=== PATIENT | female | born 1960 | race African-American/Black ===

== ENCOUNTER 2019-02-03 11:41 | Inpatient (IN) | payer MEDICAID ==
[~2019-02-03] VITALS: Ht 160 cm; Wt 73.5 kg
[2019-02-03] MEDS ORDERED: SODIUM CHLORIDE 0.9% 1,000 ML IV ONE ×2 (13:00→14:15)
[2019-02-03 13:27] LABS: BASOPHILS % 0.5 % (0.0-2.0); EOSINOPHILS % 0.4 % (0.0-5.0); HEMATOCRIT. 41.5 % (36.0-48.0); HEMOGLOBIN. 13.2 g/dL (12.0-16.0); LYMPHOCYTES % 21.6 % (20.0-50.0); MEAN CORPUSCULAR HEMOGLOBIN 29.6 pg (28.0-32.0); MEAN CORPUSCULAR VOLUME 92.8 fL (81.0-99.0); MEAN PLATELET VOLUME 10.5 fl (7.4-10.4); MONOCYTES % 9.1 % (2.0-8.0); NEUTROPHILS % 68.4 % (40.0-76.0); PLATELET 270 x1000/uL (130-400); RED BLOOD CELL COUNT 4.47 mill/uL (4.2-5.4); RED CELL DISTRIBUTION WIDTH 13.8 % (11.6-14.6)
[2019-02-03 13:30] LABS: CHLORIDE 86 mEq/L (98-107); INR 1.1; PROTHROMBIN TIME 10.9 sec (9.6-11.0)
[2019-02-03 13:40] LABS: BETA HYDROXYBUTYRATE 3.6 mMol/L (0.0-0.3)
[2019-02-03 13:42] LABS: ETHANOL BLOOD < 10 mg/dL
[2019-02-03] MEDS ORDERED: MAGNESIUM/ALUMINUM HYDROXIDE/SIMETHICONE 30ML UDC PO ONE (14:15)
[2019-02-03] MEDS ORDERED: INSULIN REGULAR (HUMULIN R) 300UNITS/3ML IV ONE (14:15)
[2019-02-03] MEDS ORDERED: ONDANSETRON HCL 4MG/2ML INJ IV ONE (14:15)
[2019-02-03] MEDS ORDERED: MORPHINE SULFATE 4 MG/ML CPJ (NOT FOR IM USE) IV ONE (14:15)
[2019-02-03] MEDS ORDERED: VISCOUS LIDOCAINE 2% 15 ML UDC MM ONE (14:15)
[2019-02-03] MEDS ORDERED: LABETALOL 5MG/ML SYR 20 MG/4 ML SYRINGE IV ONE (15:15)
[2019-02-03] MEDS ORDERED: LABETALOL HCL 100MG TABLET PO NR (16:00)
[2019-02-03] MEDS: SODIUM CHLORIDE 0.9% 1,000 ML IV SCH (18:02)
[2019-02-03] MEDS ORDERED: DOCUSATE SODIUM 100MG CAPSULE PO PRN (18:15)
[2019-02-03] MEDS ORDERED: ACETAMINOPHEN 325MG TABLET PO PRN (18:15)
[2019-02-03] MEDS ORDERED: ONDANSETRON HCL 4MG/2ML INJ IV PRN (18:15)
[2019-02-03] MEDS ORDERED: KCL 10MEQ/50ML PREMIX 50 ML IV ONE (18:15)
[2019-02-03] MEDS: CLONIDINE 0.1MG TABLET PO PRN ×2 (18:30→22:02)
[2019-02-03 23:00] VITALS: BP 155/88
[2019-02-03] MEDS: FAMOTIDINE 20MG/2ML VIAL IV SCH (23:25)
[2019-02-03] MEDS: BLOOD SUGAR DIAGNOSTIC STRIP TEST SCH ×2 (23:26→23:27)
[2019-02-03] MEDS ORDERED: DEXTROSE 50% WATER 50ML SYRINGE IV PRN (23:30)
[2019-02-04] VITALS: BP 137/80
[2019-02-04] MEDS: INSULIN LISPRO 100 UNITS/ML SUBCUT SCH ×5 (00:37→21:51)
[2019-02-04 04:00] VITALS: BP 143/80
[2019-02-04] MEDS: BLOOD SUGAR DIAGNOSTIC STRIP TEST SCH ×4 (06:32→21:17)
[2019-02-04] MEDS ORDERED: METF-416 MT (07:05)
[2019-02-04] MEDS ORDERED: HYDROCHLO (07:07)
[2019-02-04] MEDS ORDERED: HYDR12.529 MT (07:07)
[2019-02-04 08:00] VITALS: BP 150/73
[2019-02-04 08:01] LABS: BASOPHILS % 0.6 % (0.0-2.0); EOSINOPHILS % 0.5 % (0.0-5.0); HEMATOCRIT. 36.2 % (36.0-48.0); HEMOGLOBIN. 11.7 g/dL (12.0-16.0); LYMPHOCYTES % 27.7 % (20.0-50.0); MEAN CORPUSCULAR HEMOGLOBIN 29.3 pg (28.0-32.0); MEAN CORPUSCULAR VOLUME 90.3 fL (81.0-99.0); MEAN PLATELET VOLUME 9.8 fl (7.4-10.4); MONOCYTES % 7.4 % (2.0-8.0); NEUTROPHILS % 63.8 % (40.0-76.0); PLATELET 239 x1000/uL (130-400); RED BLOOD CELL COUNT 4.01 mill/uL (4.2-5.4); RED CELL DISTRIBUTION WIDTH 13.5 % (11.6-14.6)
[2019-02-04 08:13] LABS: CHLORIDE 101 mEq/L (98-107)
[2019-02-04] MEDS: AMLODIPINE 10MG TABLET PO SCH (09:32)
[2019-02-04] MEDS: HYDROCHLOROTHIAZIDE 25MG TABLET PO SCH (09:33)
[2019-02-04] MEDS ORDERED: POTASSIUM CHLORIDE 20MEQ TABLET SR PO NR (10:15)
[2019-02-04 12:00] VITALS: BP 154/76
[2019-02-04] MEDS: METFORMIN HCL 500MG TABLET PO SCH (18:08)
[2019-02-04 20:00] VITALS: BP 157/90
[2019-02-04] MEDS: FAMOTIDINE 20MG/2ML VIAL IV SCH (21:23)
[2019-02-04] MEDS: SODIUM CHLORIDE 0.9% 1,000 ML IV SCH (21:53)
[2019-02-05] VITALS: BP 161/97
[2019-02-05] MEDS: CLONIDINE 0.1MG TABLET PO PRN (02:41)
[2019-02-05 04:00] VITALS: BP 158/70
[2019-02-05 06:21] LABS: BASOPHILS % 0.7 % (0.0-2.0); EOSINOPHILS % 2.4 % (0.0-5.0); HEMATOCRIT. 34.7 % (36.0-48.0); HEMOGLOBIN. 11.2 g/dL (12.0-16.0); LYMPHOCYTES % 36.9 % (20.0-50.0); MEAN CORPUSCULAR HEMOGLOBIN 29.7 pg (28.0-32.0); MEAN CORPUSCULAR VOLUME 91.9 fL (81.0-99.0); MEAN PLATELET VOLUME 10.2 fl (7.4-10.4); PLATELET 214 x1000/uL (130-400); RED BLOOD CELL COUNT 3.78 mill/uL (4.2-5.4); RED CELL DISTRIBUTION WIDTH 13.4 % (11.6-14.6)
[2019-02-05] MEDS: BLOOD SUGAR DIAGNOSTIC STRIP TEST SCH (06:35)
[2019-02-05] MEDS: INSULIN LISPRO 100 UNITS/ML SUBCUT SCH (06:46)
[2019-02-05 06:47] LABS: CHLORIDE 101 mEq/L (98-107)
[2019-02-05 08:00] VITALS: BP 147/88
[2019-02-05] MEDS: METFORMIN HCL 500MG TABLET PO SCH (08:20)
[2019-02-05] MEDS: AMLODIPINE 10MG TABLET PO SCH (08:20)
[2019-02-05] MEDS: HYDROCHLOROTHIAZIDE 25MG TABLET PO SCH (08:20)
[2019-02-05] MEDS: SODIUM CHLORIDE 0.9% 1,000 ML IV SCH (08:21)
[2019-02-05] MEDS ORDERED: POTASSIUM CHLORIDE 20MEQ TABLET SR PO SCH (09:15)
[2019-02-05 09:37] VITALS: BP 147/88
== END 2019-02-05 10:55 | disposition home or self-care (01) | DRG 199 ==
LOC: ER 12:21 → 8WST 17:49 → ENRESERV 21:35 → UNDODISIN 02-04 19:00
PROVIDERS: ADMIT Hospitalist; ATTEND Hospitalist
DX: I16.0 Hypertensive urgency (principal); E11.65 Type 2 diabetes mellitus with hyperglycemia; I10 Essential (primary) hypertension; E86.0 Dehydration; K21.9 Gastro-esophageal reflux disease without esophagitis; R26.81 Unsteadiness on feet; Z79.899 Other long term (current) drug therapy
CPT/HCPCS: 36415; 80048; 80320; 82010; 82962; 83036; 93970; 96365; 97162; 99291; J1815; J2405; J3480; J3490; J7030; G0480

== ENCOUNTER 2021-09-14 10:23 | Inpatient (IN) | payer MEDICAID ==
[~2021-09-14] VITALS: Ht 157.5 cm; Wt 69.1 kg
[2021-09-14] VITALS (34 sets, daily range): BP systolic 63–145; BP diastolic 25–104
[~2021-09-14 10:23] MED LIST: EPINEPHRINE 0.1MG/ML (1:10,000) 10ML SYR ONE; HYDR12.529 MT; METF-416 MT; SODIUM BICARBONATE 8.4% 1 MEQ/ML 50ML SYR IV ONE
[2021-09-14] MEDS ORDERED: PANTOPRAZOLE SODIUM 40 MG/VIAL IV ONE (10:45)
[2021-09-14] MEDS ORDERED: ONDANSETRON HCL 4MG/2ML INJ IV ONE (10:45)
[2021-09-14] MEDS ORDERED: PIPERACILLIN/TAZ 3.375G PREMIX 50 ML IV ONE (10:45)
[2021-09-14] MEDS ORDERED: SODIUM CHLORIDE 0.9% 1000ML BAG (SEPSIS BOLUS) IV ONE (10:45)
[2021-09-14 11:15] LABS: HEMATOCRIT. 36.4 % (36.0-48.0); HEMOGLOBIN. 11.4 g/dL (12.0-16.0); LYMPHOCYTES % 12.8 % (20.0-50.0); MEAN CORPUSCULAR HEMOGLOBIN 30.6 pg (28.0-32.0); MEAN CORPUSCULAR VOLUME 97.5 fL (81.0-99.0); MEAN PLATELET VOLUME 8.9 fl (7.4-10.4); MONOCYTES % 7.1 % (2.0-8.0); NEUTROPHILS % 80.1 % (40.0-76.0); PLATELET 479 x1000/uL (130-400); RED BLOOD CELL COUNT 3.74 mill/uL (4.2-5.4); RED CELL DISTRIBUTION WIDTH 15.1 % (11.6-14.6)
[2021-09-14 11:21] LABS: CHLORIDE 109 mEq/L (98-107)
[2021-09-14 11:21] LABS: BG BASE EXCESS -13.8 mmol/L (-2.0-2.0); BG CARBOXYHEMOGLOBIN 0.3 % (0.5-1.5); BG FRACTION INSPIRED OXYGEN 100; BG HCO3 ACT 11.8 mmol/L (22.0-26.0); BG METHEMOGLOBIN 0.2 % (0.0-1.5); BG OXYHEMOGLOBIN 98.5 % (94.0-97.0); BG PCO2 27.3 mmHg (35.0-45.0); BG PH 7.255 (7.350-7.450); BG PO2 193.7 mmHg (75.0-100.0); BG SAMPLE SITE RIGHT RADIAL; BG TOTAL HEMOGLOBIN 11.7 g/dL (12.0-18.0); BG VENT MODE VENT - AC
[2021-09-14] MEDS ORDERED: NOREPINEPHRINE 8 MG in DEXT 5% WATER 242 ML IV STA (11:21)
[2021-09-14 11:40] LABS: CLARITY URINE CLOUDY (CLEAR); COLOR URINE DARK YELLOW (YELLOW); KETONES URINE 1+ (NEGATIVE); LEUKOCYTE ESTERASE URINE 2+ (NEGATIVE); NITRITE URINE NEGATIVE (NEGATIVE); OCCULT BLOOD URINE NEGATIVE (NEGATIVE); PROTEIN URINE 3+ (NEGATIVE); SPECIFIC GRAVITY URINE 1.027 (1.005-1.030)
[2021-09-14 11:40] LABS: ETHANOL BLOOD < 10 mg/dL
[2021-09-14 11:44] LABS: CREATINE KINASE 145 IU/L (26-192)
[2021-09-14] MEDS ORDERED: MIDAZOLAM HCL 100 MG in DEXT 5% WATER 80 ML IV ONE (11:45)
[2021-09-14] MEDS ORDERED: ETOMIDATE 2MG/ML 10ML VIAL IV ONE (11:45)
[2021-09-14] MEDS ORDERED: SUCCINYLCHOLINE CHLORIDE 200MG/10ML IV ONE (11:45)
[2021-09-14] MEDS ORDERED: VECURONIUM BROMIDE 10 MG/VIAL IV ONE (11:45)
[2021-09-14 11:59] LABS: INR 1.3; PROTHROMBIN TIME 13.5 sec (9.6-11.0)
[2021-09-14 12:07] LABS: *AMPHETAMINES SCREEN URINE NEGATIVE (NEGATIVE); *BARBITURATES SCREEN URINE NEGATIVE (NEGATIVE); *BENZODIAZEPINES SCREEN URINE NEGATIVE (NEGATIVE); *COCAINE SCREEN URINE NEGATIVE (NEGATIVE); CANNABINOID URINE SCREEN NEGATIVE (NEGATIVE); METHADONE URINE SCREEN NEGATIVE (NEGATIVE); OPIATES URINE SCREEN NEGATIVE (NEGATIVE); PHENCYCLIDINE URINE SCREEN NEGATIVE (NEGATIVE)
[2021-09-14] MEDS ORDERED: LEVOFLOXACIN 500MG PREMIX 100 ML IV ONE (12:30)
[2021-09-14] MEDS: MIDAZOLAM 100MG/100ML PREMIX IV PRN (13:29)
[2021-09-14] MEDS ORDERED: NOREPINEPHRINE 8MG/250ML PMX 242 ML IV STA (15:14)
[2021-09-14] MEDS ORDERED: NOREPINEPHRINE 8MG/250ML PMX 242 ML IV NR (15:30)
[2021-09-14] MEDS ORDERED: DIGOXIN 500MCG/2ML AMP IV NR ×2 (15:49→15:54)
[2021-09-14] MEDS ORDERED: DILTIAZEM 125MG/125ML PMX 125 ML IV PRN (16:15)
[2021-09-14] MEDS ORDERED: PHENYLEPHRINE 100 MG in DEXT 5% WATER 240 ML IV PRN ×2 (17:00→21:45)
[2021-09-14] MEDS ORDERED: VASOPRESSIN 20 UNIT in SODIUM CHLORIDE 0.9% 99 ML IV PRN ×2 (17:00→21:45)
[2021-09-14 17:23] LABS: BG BASE EXCESS -7.3 mmol/L (-2.0-2.0); BG CARBOXYHEMOGLOBIN 0.3 % (0.5-1.5); BG DEOXYHEMOGLOBIN 3.7 % (0.0-5.0); BG FRACTION INSPIRED OXYGEN 80; BG HCO3 ACT 16.7 mmol/L (22.0-26.0); BG METHEMOGLOBIN 0.3 % (0.0-1.5); BG OXYGEN SATURATION 96.3 % (92.0-98.5); BG OXYHEMOGLOBIN 95.7 % (94.0-97.0); BG PCO2 29.7 mmHg (35.0-45.0); BG PH 7.369 (7.350-7.450); BG PO2 91.1 mmHg (75.0-100.0); BG SAMPLE SITE RIGHT RADIAL; BG VENT MODE VENT - AC
[2021-09-14] MEDS ORDERED: PROPOFOL 10MG/ML 100ML 100 ML IV PRN (18:15)
[2021-09-14] MEDS: FENTANYL 2500MCG/250ML PMX 250 ML IV PRN (18:21)
[2021-09-14] MEDS ORDERED: LORAZEPAM 2MG/ML CPJ IV PRN (18:30)
[2021-09-14] MEDS ORDERED: SODIUM CHLORIDE 0.9% 1,000 ML IV SCH (18:30)
[2021-09-14] MEDS ORDERED: MORPHINE SULFATE 2 MG/ML CPJ (NOT FOR IM USE) IV PRN (18:30)
[2021-09-14] MEDS ORDERED: HYDROCODONE/ACETAMINOPHEN 5/325MG TABLET PO PRN (18:30)
[2021-09-14] MEDS ORDERED: CLONIDINE 0.1MG TABLET PO PRN (18:30)
[2021-09-14] MEDS ORDERED: DOCUSATE SODIUM 100MG CAPSULE PO PRN (18:30)
[2021-09-14] MEDS ORDERED: PIPERACILLIN/TAZ 3.375G PREMIX 50 ML IV SCH (18:30)
[2021-09-14] MEDS ORDERED: ONDANSETRON HCL 4MG/2ML INJ IV PRN (18:30)
[2021-09-14] MEDS ORDERED: HYDRALAZINE 20MG/ML VIAL IV PRN (18:30)
[2021-09-14] MEDS ORDERED: MAGNESIUM/ALUMINUM HYDROXIDE/SIMETHICONE 30ML UDC PO PRN (18:30)
[2021-09-14] MEDS ORDERED: GUAIFENESIN 200MG/10ML SUGAR FREE UDC PO PRN (18:30)
[2021-09-14] MEDS ORDERED: DIPHENHYDRAMINE 50MG/ML VIAL IV PRN (18:30)
[2021-09-14] MEDS ORDERED: NALOXONE HCL 0.4MG/ML VIAL IV PRN (18:45)
[2021-09-14] MEDS ORDERED: DEXTROSE 50% WATER 50ML SYRINGE IV PRN ×3 (18:45→21:00)
[2021-09-14] MEDS ORDERED: GLUXL5 MT (18:55)
[2021-09-14] MEDS ORDERED: DOCU-138 MT (18:55)
[2021-09-14] MEDS ORDERED: METO-385 MT (18:55)
[2021-09-14] MEDS ORDERED: ATOR40TA70 MT (18:55)
[2021-09-14] MEDS ORDERED: FERR325T6 MT (18:55)
[2021-09-14] MEDS ORDERED: LOSA50TA41 MT (18:55)
[2021-09-14] MEDS ORDERED: LEVO25TA7 MT (18:55)
[2021-09-14] MEDS ORDERED: AMLO10TA80 MT (18:55)
[2021-09-14] MEDS ORDERED: INSULIN LISPRO 100 UNITS/ML SUBCUT SCH ×2 (20:00→21:00)
[2021-09-14] MEDS ORDERED: BLOOD SUGAR DIAGNOSTIC STRIP TEST SCH (20:00)
[2021-09-14 20:14] LABS: INR 1.2; PROTHROMBIN TIME 13.1 sec (9.6-11.0)
[2021-09-14 20:30] LABS: PHOSPHORUS 4.4 mg/dL (2.5-4.9)
[2021-09-14 20:41] LABS: HCG SCREEN NEGATIVE
[2021-09-14] MEDS ORDERED: INSULIN REGULAR 100U/100ML PMX 100 ML IV PRN (20:45)
[2021-09-14] MEDS ORDERED: INSULIN REGULAR (DRIP) 100 UNITS in SODIUM CHLORIDE 0.9% 99 ML IV PRN (20:45)
[2021-09-14] MEDS ORDERED: INSULIN REGULAR 100U/100ML PMX 100 ML IV SCH (21:00)
[2021-09-14] MEDS: SODIUM CHLORIDE 0.9% INJ 3ML FLUSH IVF SCH (21:11)
[2021-09-14] MEDS: BLOOD SUGAR DIAGNOSTIC STRIP TEST SCH ×3 (21:11→23:32)
[2021-09-14] MEDS: PIPERACILLIN/TAZOBACTAM 3.375G in DEXT 5% WATER 50ML IV SCH (21:17)
[2021-09-14 21:36] LABS: HEMATOCRIT. 38.8 % (36.0-48.0); HEMOGLOBIN. 12.7 g/dL (12.0-16.0); MEAN CORPUSCULAR HEMOGLOBIN 29.3 pg (28.0-32.0); MEAN CORPUSCULAR VOLUME 89.4 fL (81.0-99.0); MEAN PLATELET VOLUME 8.6 fl (7.4-10.4); PLATELET 317 x1000/uL (130-400); RED BLOOD CELL COUNT 4.34 mill/uL (4.2-5.4); RED CELL DISTRIBUTION WIDTH 18.9 % (11.6-14.6)
[2021-09-14 21:47] LABS: INR 1.2; PARTIAL THROMBOPLASTIN TIME 27.2 sec (23.4-31.0)
[2021-09-14] MEDS ORDERED: FENTANYL 2500MCG/250ML PMX 250 ML IV PRN (22:15)
[2021-09-14 22:26] LABS: NUCLEATED RED BLOOD CELLS 1 /100 WBC; PLATELET ESTIMATE NORMAL
[2021-09-14] MEDS: NOREPINEPHRINE 32 MG in DEXT 5% WATER 218 ML IV PRN (22:31)
[2021-09-14] MEDS ORDERED: MAGNESIUM 2 G PREMIX 50 ML IV NR (23:30)
[2021-09-14] MEDS ORDERED: CALCIUM GLUCONATE 2,000 MG in DEXT 5% WATER 80 ML IV PRN (23:30)
[2021-09-15] VITALS (95 sets, daily range): BP systolic 62–180; BP diastolic 37–119
[2021-09-15] MEDS: BLOOD SUGAR DIAGNOSTIC STRIP TEST SCH ×18 (00:19→20:06)
[2021-09-15 01:30] LABS: PHOSPHORUS 3.4 mg/dL (2.5-4.9)
[2021-09-15] MEDS: MIDAZOLAM 100MG/100ML PREMIX IV PRN (02:20)
[2021-09-15] MEDS: MAGNESIUM 2 G PREMIX 50 ML IV PRN (04:09)
[2021-09-15 05:30] LABS: BASOPHILS % 0.1 % (0.0-2.0); HEMATOCRIT. 37.8 % (36.0-48.0); HEMOGLOBIN. 12.2 g/dL (12.0-16.0); LYMPHOCYTES % 13.7 % (20.0-50.0); MEAN CORPUSCULAR HEMOGLOBIN 28.6 pg (28.0-32.0); MEAN CORPUSCULAR VOLUME 88.5 fL (81.0-99.0); MEAN PLATELET VOLUME 8.7 fl (7.4-10.4); MONOCYTES % 6.5 % (2.0-8.0); NEUTROPHILS % 79.7 % (40.0-76.0); PLATELET 255 x1000/uL (130-400); RED BLOOD CELL COUNT 4.27 mill/uL (4.2-5.4); RED CELL DISTRIBUTION WIDTH 19.1 % (11.6-14.6)
[2021-09-15 05:31] LABS: PHOSPHORUS 2.7 mg/dL (2.5-4.9)
[2021-09-15] MEDS: PIPERACILLIN/TAZOBACTAM 3.375G in DEXT 5% WATER 50ML IV SCH ×3 (05:43→21:13)
[2021-09-15 06:04] LABS: BG BASE EXCESS -4.4 mmol/L (-2.0-2.0); BG CARBOXYHEMOGLOBIN 0.6 % (0.5-1.5); BG DEOXYHEMOGLOBIN 3.3 % (0.0-5.0); BG FRACTION INSPIRED OXYGEN 80; BG HCO3 ACT 20.7 mmol/L (22.0-26.0); BG METHEMOGLOBIN 0.2 % (0.0-1.5); BG OXYGEN SATURATION 96.7 % (92.0-98.5); BG OXYHEMOGLOBIN 95.9 % (94.0-97.0); BG PCO2 38.6 mmHg (35.0-45.0); BG PH 7.348 (7.350-7.450); BG SAMPLE SITE RIGHT FEMORAL; BG VENT MODE VENT - AC
[2021-09-15] MEDS: SODIUM CHLORIDE 0.9% INJ 3ML FLUSH IVF SCH (06:30)
[2021-09-15] MEDS: PANTOPRAZOLE SODIUM 40 MG/VIAL IV SCH ×2 (08:49→16:49)
[2021-09-15 09:06] LABS: BG BASE EXCESS -6.1 mmol/L (-2.0-2.0); BG CARBOXYHEMOGLOBIN 0.4 % (0.5-1.5); BG DEOXYHEMOGLOBIN 1.6 % (0.0-5.0); BG FRACTION INSPIRED OXYGEN 80; BG HCO3 ACT 18.9 mmol/L (22.0-26.0); BG METHEMOGLOBIN 0.2 % (0.0-1.5); BG OXYGEN SATURATION 98.4 % (92.0-98.5); BG OXYHEMOGLOBIN 97.8 % (94.0-97.0); BG PCO2 35.6 mmHg (35.0-45.0); BG PH 7.342 (7.350-7.450); BG PO2 124.8 mmHg (75.0-100.0); BG TOTAL HEMOGLOBIN 13.7 g/dL (12.0-18.0); BG VENT MODE VENT - AC
[2021-09-15] MEDS: KCL 20MEQ/100ML PREMIX 100 ML IV PRN (09:13)
[2021-09-15] MEDS: SODIUM CHLORIDE 0.45% 1,000 ML IV SCH (09:49)
[2021-09-15 13:33] LABS: PHOSPHORUS 2.4 mg/dL (2.5-4.9)
[2021-09-15] MEDS: NOREPINEPHRINE 32 MG in DEXT 5% WATER 218 ML IV PRN (14:51)
[2021-09-15] MEDS: MIDAZOLAM 100MG/100ML PMX 100 ML IV PRN (14:52)
[2021-09-15 16:05] LABS: BG BASE EXCESS -4.4 mmol/L (-2.0-2.0); BG CARBOXYHEMOGLOBIN 0.2 % (0.5-1.5); BG DEOXYHEMOGLOBIN 1.8 % (0.0-5.0); BG FRACTION INSPIRED OXYGEN 65; BG HCO3 ACT 20.7 mmol/L (22.0-26.0); BG METHEMOGLOBIN 0.2 % (0.0-1.5); BG OXYGEN SATURATION 98.2 % (92.0-98.5); BG OXYHEMOGLOBIN 97.8 % (94.0-97.0); BG PCO2 38.4 mmHg (35.0-45.0); BG PO2 127.6 mmHg (75.0-100.0); BG TOTAL HEMOGLOBIN 13.5 g/dL (12.0-18.0); BG VENT MODE VENT - AC
[2021-09-15] MEDS ORDERED: BUSPIRONE HCL 10MG TABLET NG PRN (16:45)
[2021-09-15] MEDS ORDERED: ACETAMINOPHEN 650MG SUPP PR PRN (16:45)
[2021-09-15] MEDS ORDERED: MEPERIDINE HCL/PF 25MG/ML CPJ IV PRN (16:45)
[2021-09-15] MEDS ORDERED: VANCOMYCIN 1.25GM PMX (XELLIA) 250 ML IV NR (17:00)
[2021-09-15] MEDS ORDERED: THIAMINE HCL 100 MG in SODIUM CHLORIDE 0.9% 49 ML IV NR (20:00)
[2021-09-15] MEDS: FENTANYL 2500MCG/250ML PMX 250 ML IV PRN (20:06)
[2021-09-15] MEDS ORDERED: PROPOFOL 10MG/ML 100ML 100 ML IV PRN (20:30)
[2021-09-15] MEDS ORDERED: DEXTROSE 50% WATER 50ML SYRINGE IV PRN (21:15)
[2021-09-15 21:48] LABS: BG BASE EXCESS -10.1 mmol/L (-2.0-2.0); BG CARBOXYHEMOGLOBIN 0.3 % (0.5-1.5); BG DEOXYHEMOGLOBIN 3.8 % (0.0-5.0); BG FRACTION INSPIRED OXYGEN 55; BG METHEMOGLOBIN 0.3 % (0.0-1.5); BG OXYGEN SATURATION 96.2 % (92.0-98.5); BG OXYHEMOGLOBIN 95.6 % (94.0-97.0); BG PCO2 35.9 mmHg (35.0-45.0); BG PH 7.267 (7.350-7.450); BG PO2 96.3 mmHg (75.0-100.0); BG SAMPLE SITE LEFT RADIAL; BG TOTAL HEMOGLOBIN 12.8 g/dL (12.0-18.0); BG TOTAL RESPIRATORY RATE 16 b/min; BG VENT MODE VENT - AC
[2021-09-15 22:03] LABS: INR 1.3; PARTIAL THROMBOPLASTIN TIME 32.4 sec (23.4-31.0); PROTHROMBIN TIME 13.4 sec (9.6-11.0)
[2021-09-15 22:07] LABS: PHOSPHORUS 3.5 mg/dL (2.5-4.9)
[2021-09-15] MEDS ORDERED: SODIUM BICARBONATE 8.4% 1 MEQ/ML 50ML SYR IV NR (22:30)
[2021-09-16] VITALS (101 sets, daily range): BP systolic 49–162; BP diastolic 31–126
[2021-09-16] MEDS: BLOOD SUGAR DIAGNOSTIC STRIP TEST SCH ×6 (00:27→20:00)
[2021-09-16] MEDS: INSULIN LISPRO 100 UNITS/ML SUBCUT SCH ×6 (00:32→21:02)
[2021-09-16 00:52] LABS: BASOPHILS % 0.1 % (0.0-2.0); EOSINOPHILS % 0.1 % (0.0-5.0); HEMOGLOBIN. 12.2 g/dL (12.0-16.0); LYMPHOCYTES % 11.3 % (20.0-50.0); MEAN CORPUSCULAR HEMOGLOBIN 28.7 pg (28.0-32.0); MEAN CORPUSCULAR VOLUME 87.2 fL (81.0-99.0); MEAN PLATELET VOLUME 9.1 fl (7.4-10.4); MONOCYTES % 4.5 % (2.0-8.0); PLATELET 201 x1000/uL (130-400); RED BLOOD CELL COUNT 4.24 mill/uL (4.2-5.4); RED CELL DISTRIBUTION WIDTH 18.8 % (11.6-14.6)
[2021-09-16] MEDS: SODIUM CHLORIDE 0.45% 1,000 ML IV SCH ×2 (01:35→18:35)
[2021-09-16] MEDS: NOREPINEPHRINE 32 MG in DEXT 5% WATER 218 ML IV PRN ×2 (01:35→12:24)
[2021-09-16 02:44] LABS: PHOSPHORUS 3.5 mg/dL (2.5-4.9)
[2021-09-16 04:42] LABS: INR 1.2; PARTIAL THROMBOPLASTIN TIME 28.8 sec (23.4-31.0); PROTHROMBIN TIME 12.6 sec (9.6-11.0)
[2021-09-16] MEDS: PIPERACILLIN/TAZOBACTAM 3.375G in DEXT 5% WATER 50ML IV SCH ×3 (05:53→22:38)
[2021-09-16] MEDS: MIDAZOLAM 100MG/100ML PMX 100 ML IV PRN (07:24)
[2021-09-16] MEDS: PANTOPRAZOLE SODIUM 40 MG/VIAL IV SCH ×2 (08:29→17:09)
[2021-09-16 09:19] LABS: BASOPHILS % 0.1 % (0.0-2.0); EOSINOPHILS % 0.5 % (0.0-5.0); HEMATOCRIT. 28.7 % (36.0-48.0); LYMPHOCYTES % 16.3 % (20.0-50.0); MEAN CORPUSCULAR HEMOGLOBIN 29.4 pg (28.0-32.0); MEAN CORPUSCULAR VOLUME 104.1 fL (81.0-99.0); MEAN PLATELET VOLUME 9.2 fl (7.4-10.4); NEUTROPHILS % 80.1 % (40.0-76.0); PLATELET 130 x1000/uL (130-400); RED BLOOD CELL COUNT 2.76 mill/uL (4.2-5.4); RED CELL DISTRIBUTION WIDTH 21.2 % (11.6-14.6)
[2021-09-16 09:31] LABS: INR 1.2; PARTIAL THROMBOPLASTIN TIME 35.5 sec (23.4-31.0)
[2021-09-16 09:33] LABS: BG BASE EXCESS -3.1 mmol/L (-2.0-2.0); BG CARBOXYHEMOGLOBIN 0.3 % (0.5-1.5); BG DEOXYHEMOGLOBIN 2.8 % (0.0-5.0); BG FRACTION INSPIRED OXYGEN 55; BG HCO3 ACT 21.1 mmol/L (22.0-26.0); BG OXYGEN SATURATION 97.2 % (92.0-98.5); BG OXYHEMOGLOBIN 96.9 % (94.0-97.0); BG PCO2 35.4 mmHg (35.0-45.0); BG PH 7.394 (7.350-7.450); BG PO2 98.7 mmHg (75.0-100.0); BG SAMPLE SITE RIGHT RADIAL; BG VENT MODE VENT - AC
[2021-09-16 10:02] LABS: HEMOGLOBIN. 8.1 g/dL (12.0-16.0)
[2021-09-16 11:34] LABS: EOSINOPHILS % 0.4 % (0.0-5.0); HEMATOCRIT. 35.8 % (36.0-48.0); HEMOGLOBIN. 11.9 g/dL (12.0-16.0); MEAN CORPUSCULAR HEMOGLOBIN 28.9 pg (28.0-32.0); MEAN CORPUSCULAR VOLUME 87.1 fL (81.0-99.0); MEAN PLATELET VOLUME 9.1 fl (7.4-10.4); NEUTROPHILS % 79.6 % (40.0-76.0); PLATELET 222 x1000/uL (130-400); RED BLOOD CELL COUNT 4.11 mill/uL (4.2-5.4); RED CELL DISTRIBUTION WIDTH 18.7 % (11.6-14.6)
[2021-09-16 11:45] LABS: PHOSPHORUS 2.4 mg/dL (2.5-4.9)
[2021-09-16 12:46] LABS: INR 1.2; PARTIAL THROMBOPLASTIN TIME 33.5 sec (23.4-31.0); PROTHROMBIN TIME 12.5 sec (9.6-11.0)
[2021-09-16] MEDS: MAGNESIUM 2 G PREMIX 50 ML IV PRN (13:24)
[2021-09-16] MEDS ORDERED: POTASSIUM PHOS,M-BASIC-D-BASIC 15 MMOL in DEXT 5% WATER 245 ML IV SCH (15:00)
[2021-09-16] MEDS ORDERED: MAGNESIUM 2 G PREMIX 50 ML IV SCH (15:00)
[2021-09-16] MEDS: PHENYLEPHRINE 100 MG in DEXT 5% WATER 240 ML IV PRN (16:09)
[2021-09-16] MEDS ORDERED: VANCOMYCIN 750 MG in DEXT 5% WATER 250 ML IV SCH (17:00)
[2021-09-16] MEDS ORDERED: VANCOMYCIN 750MG PMX (XELLIA) 150 ML IV SCH (17:00)
[2021-09-16 18:19] LABS: BASOPHILS % 0.2 % (0.0-2.0); EOSINOPHILS % 0.2 % (0.0-5.0); HEMATOCRIT. 34.2 % (36.0-48.0); LYMPHOCYTES % 11.4 % (20.0-50.0); MEAN CORPUSCULAR HEMOGLOBIN 28.3 pg (28.0-32.0); MEAN CORPUSCULAR VOLUME 88.1 fL (81.0-99.0); MEAN PLATELET VOLUME 9.2 fl (7.4-10.4); MONOCYTES % 4.5 % (2.0-8.0); NEUTROPHILS % 83.7 % (40.0-76.0); PLATELET 206 x1000/uL (130-400); RED BLOOD CELL COUNT 3.88 mill/uL (4.2-5.4); RED CELL DISTRIBUTION WIDTH 18.9 % (11.6-14.6)
[2021-09-16 18:32] LABS: INR 1.1; PARTIAL THROMBOPLASTIN TIME 32.9 sec (23.4-31.0)
[2021-09-16 18:33] LABS: PHOSPHORUS 3.6 mg/dL (2.5-4.9)
[2021-09-16 21:53] LABS: CHLORIDE 100 mEq/L (98-107)
[2021-09-16] MEDS: KCL 20MEQ/100ML PREMIX 100 ML IV PRN ×2 (22:38→23:46)
[2021-09-16 23:54] LABS: BASOPHILS % 0.3 % (0.0-2.0); EOSINOPHILS % 0.5 % (0.0-5.0); HEMOGLOBIN. 10.7 g/dL (12.0-16.0); LYMPHOCYTES % 15.5 % (20.0-50.0); MEAN PLATELET VOLUME 8.9 fl (7.4-10.4); MONOCYTES % 3.6 % (2.0-8.0); NEUTROPHILS % 80.1 % (40.0-76.0); PLATELET 183 x1000/uL (130-400); RED BLOOD CELL COUNT 3.68 mill/uL (4.2-5.4); RED CELL DISTRIBUTION WIDTH 18.8 % (11.6-14.6)
[2021-09-17] VITALS (95 sets, daily range): BP systolic 66–133; BP diastolic 41–86
[2021-09-17 00:05] LABS: INR 1.1; PARTIAL THROMBOPLASTIN TIME 33.9 sec (23.4-31.0); PROTHROMBIN TIME 11.7 sec (9.6-11.0)
[2021-09-17] MEDS: BLOOD SUGAR DIAGNOSTIC STRIP TEST SCH ×6 (00:17→20:00)
[2021-09-17 01:09] LABS: CREATINE KINASE MB FRACTION 1.2 ng/mL (0.5-3.6)
[2021-09-17] MEDS: NOREPINEPHRINE 32 MG in DEXT 5% WATER 218 ML IV PRN (03:33)
[2021-09-17] MEDS: INSULIN LISPRO 100 UNITS/ML SUBCUT SCH ×6 (04:00→20:00)
[2021-09-17 05:37] LABS: BASOPHILS % 0.1 % (0.0-2.0); EOSINOPHILS % 0.8 % (0.0-5.0); HEMATOCRIT. 32.9 % (36.0-48.0); HEMOGLOBIN. 10.8 g/dL (12.0-16.0); LYMPHOCYTES % 12.3 % (20.0-50.0); MEAN CORPUSCULAR HEMOGLOBIN 28.3 pg (28.0-32.0); MEAN CORPUSCULAR VOLUME 86.6 fL (81.0-99.0); MEAN PLATELET VOLUME 9.2 fl (7.4-10.4); MONOCYTES % 3.8 % (2.0-8.0); PLATELET 181 x1000/uL (130-400); RED CELL DISTRIBUTION WIDTH 18.5 % (11.6-14.6)
[2021-09-17] MEDS: PIPERACILLIN/TAZOBACTAM 3.375G in DEXT 5% WATER 50ML IV SCH ×3 (05:42→22:23)
[2021-09-17] MEDS: PHENYLEPHRINE 100 MG in DEXT 5% WATER 240 ML IV PRN ×2 (06:59→19:53)
[2021-09-17] MEDS: PANTOPRAZOLE SODIUM 40 MG/VIAL IV SCH ×2 (08:36→16:34)
[2021-09-17 08:48] LABS: BG BASE EXCESS -4.2 mmol/L (-2.0-2.0); BG CARBOXYHEMOGLOBIN 0.3 % (0.5-1.5); BG DEOXYHEMOGLOBIN 1.1 % (0.0-5.0); BG FRACTION INSPIRED OXYGEN 55; BG HCO3 ACT 18.9 mmol/L (22.0-26.0); BG METHEMOGLOBIN 0.3 % (0.0-1.5); BG OXYGEN SATURATION 98.9 % (92.0-98.5); BG OXYHEMOGLOBIN 98.3 % (94.0-97.0); BG PCO2 28.7 mmHg (35.0-45.0); BG PH 7.436 (7.350-7.450); BG SAMPLE SITE RIGHT BRACHIAL; BG VENT MODE VENT - AC
[2021-09-17] MEDS: MULTIVITAMINS,THER W-MINERALS TABLET PO SCH (10:31)
[2021-09-17] MEDS: FOLIC ACID 1MG TABLET PO SCH (10:31)
[2021-09-17 11:14] LABS: PHOSPHORUS 2.8 mg/dL (2.5-4.9)
[2021-09-17] MEDS: SODIUM CHLORIDE 0.45% 1,000 ML IV SCH (12:09)
[2021-09-17] MEDS ORDERED: THIAMINE HCL 100MG TABLET PO SCH (13:30)
[2021-09-17 17:39] LABS: TOTAL IRON BINDING CAPACITY 147 ug/dL (250-450)
[2021-09-17 18:10] LABS: VITAMIN B12 SERUM >2000 pg/mL pg/mL (211-911)
[2021-09-17 18:37] LABS: FERRITIN 1298 ng/mL (10-291)
[2021-09-17] MEDS ORDERED: VANCOMYCIN 500 MG in DEXT 5% WATER 100 ML IV SCH (23:00)
[2021-09-18] VITALS (91 sets, daily range): BP systolic 83–163; BP diastolic 56–96
[2021-09-18 01:19] LABS: BASOPHILS % 0.1 % (0.0-2.0); EOSINOPHILS % 1.1 % (0.0-5.0); HEMATOCRIT. 28.4 % (36.0-48.0); HEMOGLOBIN. 9.5 g/dL (12.0-16.0); LYMPHOCYTES % 18.8 % (20.0-50.0); MEAN CORPUSCULAR VOLUME 87.2 fL (81.0-99.0); MEAN PLATELET VOLUME 9.4 fl (7.4-10.4); MONOCYTES % 3.3 % (2.0-8.0); NEUTROPHILS % 76.7 % (40.0-76.0); PLATELET 149 x1000/uL (130-400); RED BLOOD CELL COUNT 3.26 mill/uL (4.2-5.4); RED CELL DISTRIBUTION WIDTH 18.4 % (11.6-14.6)
[2021-09-18 01:36] LABS: PHOSPHORUS 2.2 mg/dL (2.5-4.9)
[2021-09-18 01:44] LABS: INR 1.1; PARTIAL THROMBOPLASTIN TIME 33.8 sec (23.4-31.0); PROTHROMBIN TIME 11.5 sec (9.6-11.0)
[2021-09-18 02:02] LABS: CHLORIDE 102 mEq/L (98-107)
[2021-09-18] MEDS: PHENYLEPHRINE 100 MG in DEXT 5% WATER 240 ML IV PRN ×2 (04:18→12:52)
[2021-09-18] MEDS: SODIUM CHLORIDE 0.45% 1,000 ML IV SCH ×2 (04:19→21:15)
[2021-09-18] MEDS: BLOOD SUGAR DIAGNOSTIC STRIP TEST SCH ×7 (04:19→23:24)
[2021-09-18] MEDS: INSULIN LISPRO 100 UNITS/ML SUBCUT SCH ×7 (04:51→23:25)
[2021-09-18] MEDS: PIPERACILLIN/TAZOBACTAM 3.375G in DEXT 5% WATER 50ML IV SCH ×2 (06:20→14:07)
[2021-09-18 08:29] LABS: BASOPHILS % 0.2 % (0.0-2.0); EOSINOPHILS % 1.3 % (0.0-5.0); HEMATOCRIT. 27.3 % (36.0-48.0); HEMOGLOBIN. 9.1 g/dL (12.0-16.0); LYMPHOCYTES % 20.8 % (20.0-50.0); MEAN CORPUSCULAR VOLUME 87.2 fL (81.0-99.0); MEAN PLATELET VOLUME 9.7 fl (7.4-10.4); MONOCYTES % 4.2 % (2.0-8.0); NEUTROPHILS % 73.5 % (40.0-76.0); PLATELET 142 x1000/uL (130-400); RED BLOOD CELL COUNT 3.13 mill/uL (4.2-5.4); RED CELL DISTRIBUTION WIDTH 17.9 % (11.6-14.6)
[2021-09-18] MEDS: PANTOPRAZOLE SODIUM 40 MG/VIAL IV SCH ×2 (08:38→17:08)
[2021-09-18] MEDS: MULTIVITAMINS,THER W-MINERALS TABLET PO SCH (08:38)
[2021-09-18] MEDS: FOLIC ACID 1MG TABLET PO SCH (08:39)
[2021-09-18 08:53] LABS: INR 1.1; PARTIAL THROMBOPLASTIN TIME 35.8 sec (23.4-31.0); PROTHROMBIN TIME 11.4 sec (9.6-11.0)
[2021-09-18 09:03] LABS: BG BASE EXCESS -1.3 mmol/L (-2.0-2.0); BG CARBOXYHEMOGLOBIN 0.3 % (0.5-1.5); BG FRACTION INSPIRED OXYGEN 40; BG HCO3 ACT 21.9 mmol/L (22.0-26.0); BG METHEMOGLOBIN 0.4 % (0.0-1.5); BG OXYHEMOGLOBIN 98.3 % (94.0-97.0); BG PH 7.466 (7.350-7.450); BG PO2 161.7 mmHg (75.0-100.0); BG SAMPLE SITE RIGHT RADIAL; BG VENT MODE VENT - AC
[2021-09-18] MEDS ORDERED: PIPERACILLIN/TAZOBACTAM 3.375 G in DEXTROSE 5% WATER 50 ML IV SCH (16:00)
[2021-09-18 16:46] LABS: CHLORIDE 101 mEq/L (98-107)
[2021-09-18 16:47] LABS: PHOSPHORUS 1.8 mg/dL (2.5-4.9)
[2021-09-18 16:48] LABS: AMYLASE 38 IU/L (25-115)
[2021-09-18] MEDS ORDERED: POTASSIUM CHLORIDE INJ 40 MEQ in DEXT 5% WATER 500 ML IV ONE (19:00)
[2021-09-18] MEDS: PIPERACILLIN/TAZOBACTAM 3.375 G in DEXTROSE 5% WATER 50 ML IV SCH (21:15)
[2021-09-18] MEDS: KCL 20MEQ/100ML X 2 FOR TOTAL KCL 40MEQ/200ML IV SCH ×2 (21:18→23:24)
[2021-09-19] VITALS (88 sets, daily range): BP systolic 78–161; BP diastolic 57–114
[2021-09-19] MEDS: BLOOD SUGAR DIAGNOSTIC STRIP TEST SCH ×5 (04:00→20:00)
[2021-09-19] MEDS: PIPERACILLIN/TAZOBACTAM 3.375 G in DEXTROSE 5% WATER 50 ML IV SCH ×3 (05:43→21:25)
[2021-09-19] MEDS: INSULIN LISPRO 100 UNITS/ML SUBCUT SCH ×5 (05:45→21:24)
[2021-09-19 06:26] LABS: BASOPHILS % 0.2 % (0.0-2.0); EOSINOPHILS % 2.5 % (0.0-5.0); HEMATOCRIT. 30.8 % (36.0-48.0); HEMOGLOBIN. 10.1 g/dL (12.0-16.0); MEAN CORPUSCULAR HEMOGLOBIN 29.1 pg (28.0-32.0); MEAN CORPUSCULAR VOLUME 89.3 fL (81.0-99.0); MEAN PLATELET VOLUME 9.2 fl (7.4-10.4); MONOCYTES % 8.1 % (2.0-8.0); NEUTROPHILS % 71.2 % (40.0-76.0); PLATELET 104 x1000/uL (130-400); RED BLOOD CELL COUNT 3.45 mill/uL (4.2-5.4); RED CELL DISTRIBUTION WIDTH 17.7 % (11.6-14.6)
[2021-09-19 08:44] LABS: BG BASE EXCESS -0.4 mmol/L (-2.0-2.0); BG CARBOXYHEMOGLOBIN 0.3 % (0.5-1.5); BG DEOXYHEMOGLOBIN 1.4 % (0.0-5.0); BG FRACTION INSPIRED OXYGEN 30; BG METHEMOGLOBIN 0.1 % (0.0-1.5); BG OXYGEN SATURATION 98.6 % (92.0-98.5); BG OXYHEMOGLOBIN 98.2 % (94.0-97.0); BG PCO2 33.2 mmHg (35.0-45.0); BG PH 7.459 (7.350-7.450); BG PO2 131.1 mmHg (75.0-100.0); BG SAMPLE SITE RIGHT RADIAL; BG TOTAL HEMOGLOBIN 10.4 g/dL (12.0-18.0); BG VENT MODE VENT - AC
[2021-09-19] MEDS: PANTOPRAZOLE SODIUM 40 MG/VIAL IV SCH ×2 (09:08→16:41)
[2021-09-19] MEDS: FOLIC ACID 1MG TABLET PO SCH (09:09)
[2021-09-19] MEDS: MULTIVITAMINS,THER W-MINERALS TABLET PO SCH (11:26)
[2021-09-20] VITALS (66 sets, daily range): BP systolic 109–171; BP diastolic 68–125
[2021-09-20] MEDS: BLOOD SUGAR DIAGNOSTIC STRIP TEST SCH ×6 (00:17→20:00)
[2021-09-20] MEDS: INSULIN LISPRO 100 UNITS/ML SUBCUT SCH ×6 (00:17→21:24)
[2021-09-20 05:27] LABS: BASOPHILS % 0.1 % (0.0-2.0); EOSINOPHILS % 2.5 % (0.0-5.0); HEMATOCRIT. 28.5 % (36.0-48.0); HEMOGLOBIN. 9.8 g/dL (12.0-16.0); LYMPHOCYTES % 15.6 % (20.0-50.0); MEAN CORPUSCULAR HEMOGLOBIN 29.6 pg (28.0-32.0); MEAN CORPUSCULAR VOLUME 86.3 fL (81.0-99.0); MEAN PLATELET VOLUME 9.8 fl (7.4-10.4); MONOCYTES % 9.8 % (2.0-8.0); PLATELET 100 x1000/uL (130-400); RED CELL DISTRIBUTION WIDTH 17.7 % (11.6-14.6)
[2021-09-20] MEDS: PIPERACILLIN/TAZOBACTAM 3.375 G in DEXTROSE 5% WATER 50 ML IV SCH ×3 (05:44→21:23)
[2021-09-20 05:47] LABS: CHLORIDE 108 mEq/L (98-107)
[2021-09-20 05:56] LABS: AMYLASE 61 IU/L (25-115)
[2021-09-20] MEDS: PANTOPRAZOLE SODIUM 40 MG/VIAL IV SCH ×2 (09:44→16:04)
[2021-09-20] MEDS: MULTIVITAMINS,THER W-MINERALS TABLET PO SCH (09:44)
[2021-09-20] MEDS: FOLIC ACID 1MG TABLET PO SCH (09:44)
[2021-09-20] MEDS: ASPIRIN 81MG TABLET NG SCH (09:44)
[2021-09-21] VITALS (48 sets, daily range): BP systolic 119–168; BP diastolic 72–143
[2021-09-21] MEDS: BLOOD SUGAR DIAGNOSTIC STRIP TEST SCH ×6 (00:26→20:25)
[2021-09-21] MEDS: INSULIN LISPRO 100 UNITS/ML SUBCUT SCH ×6 (03:45→20:00)
[2021-09-21] MEDS: PIPERACILLIN/TAZOBACTAM 3.375 G in DEXTROSE 5% WATER 50 ML IV SCH ×3 (05:04→21:23)
[2021-09-21 05:09] LABS: BASOPHILS % 0.3 % (0.0-2.0); EOSINOPHILS % 3.3 % (0.0-5.0); HEMATOCRIT. 27.4 % (36.0-48.0); HEMOGLOBIN. 9.4 g/dL (12.0-16.0); LYMPHOCYTES % 13.6 % (20.0-50.0); MEAN CORPUSCULAR HEMOGLOBIN 29.7 pg (28.0-32.0); MEAN CORPUSCULAR VOLUME 86.9 fL (81.0-99.0); MEAN PLATELET VOLUME 10.7 fl (7.4-10.4); MONOCYTES % 10.5 % (2.0-8.0); NEUTROPHILS % 72.3 % (40.0-76.0); PLATELET 128 x1000/uL (130-400); RED BLOOD CELL COUNT 3.16 mill/uL (4.2-5.4); RED CELL DISTRIBUTION WIDTH 17.1 % (11.6-14.6)
[2021-09-21 05:12] LABS: CHLORIDE 110 mEq/L (98-107)
[2021-09-21] MEDS: FOLIC ACID 1MG TABLET PO SCH (09:02)
[2021-09-21] MEDS: ASPIRIN 81MG TABLET NG SCH (09:02)
[2021-09-21] MEDS: PANTOPRAZOLE SODIUM 40 MG/VIAL IV SCH ×2 (09:02→17:39)
[2021-09-21] MEDS: MULTIVITAMINS,THER W-MINERALS TABLET PO SCH (09:05)
[2021-09-21 10:19] LABS: BG BASE EXCESS 1.9 mmol/L (-2.0-2.0); BG CARBOXYHEMOGLOBIN 0.1 % (0.5-1.5); BG DEOXYHEMOGLOBIN 1.9 % (0.0-5.0); BG FRACTION INSPIRED OXYGEN 30; BG HCO3 ACT 25.3 mmol/L (22.0-26.0); BG METHEMOGLOBIN 0.1 % (0.0-1.5); BG OXYGEN SATURATION 98.1 % (92.0-98.5); BG OXYHEMOGLOBIN 97.9 % (94.0-97.0); BG PCO2 34.9 mmHg (35.0-45.0); BG PH 7.479 (7.350-7.450); BG PO2 104.2 mmHg (75.0-100.0); BG SAMPLE SITE RIGHT RADIAL; BG TOTAL HEMOGLOBIN 9.5 g/dL (12.0-18.0); BG VENT MODE VENT - AC
[2021-09-21] MEDS: METOCLOPRAMIDE HCL 10MG/2ML VIAL IV SCH ×2 (11:35→17:39)
[2021-09-22] VITALS (50 sets, daily range): BP systolic 103–163; BP diastolic 64–110
[2021-09-22] MEDS: BLOOD SUGAR DIAGNOSTIC STRIP TEST SCH ×7 (00:56→23:18)
[2021-09-22] MEDS: METOCLOPRAMIDE HCL 10MG/2ML VIAL IV SCH ×5 (01:10→23:12)
[2021-09-22] MEDS: INSULIN LISPRO 100 UNITS/ML SUBCUT SCH ×7 (04:00→23:21)
[2021-09-22 04:06] LABS: CHLORIDE 111 mEq/L (98-107)
[2021-09-22 04:28] LABS: BASOPHILS % 0.2 % (0.0-2.0); EOSINOPHILS % 1.8 % (0.0-5.0); HEMATOCRIT. 24.9 % (36.0-48.0); HEMOGLOBIN. 8.3 g/dL (12.0-16.0); LYMPHOCYTES % 17.7 % (20.0-50.0); MEAN CORPUSCULAR HEMOGLOBIN 29.5 pg (28.0-32.0); MEAN CORPUSCULAR VOLUME 88.6 fL (81.0-99.0); MEAN PLATELET VOLUME 9.4 fl (7.4-10.4); MONOCYTES % 11.8 % (2.0-8.0); NEUTROPHILS % 68.5 % (40.0-76.0); PLATELET 181 x1000/uL (130-400); RED BLOOD CELL COUNT 2.81 mill/uL (4.2-5.4); RED CELL DISTRIBUTION WIDTH 17.4 % (11.6-14.6)
[2021-09-22 04:34] LABS: PHOSPHORUS 0.8 mg/dL (2.5-4.9)
[2021-09-22] MEDS: MAGNESIUM 2 G PREMIX 50 ML IV PRN (05:06)
[2021-09-22 08:40] LABS: BG BASE EXCESS 2.4 mmol/L (-2.0-2.0); BG CARBOXYHEMOGLOBIN 0.5 % (0.5-1.5); BG DEOXYHEMOGLOBIN 1.4 % (0.0-5.0); BG FRACTION INSPIRED OXYGEN 30; BG HCO3 ACT 25.5 mmol/L (22.0-26.0); BG METHEMOGLOBIN 0.3 % (0.0-1.5); BG OXYGEN SATURATION 98.6 % (92.0-98.5); BG OXYHEMOGLOBIN 97.8 % (94.0-97.0); BG PCO2 33.2 mmHg (35.0-45.0); BG PH 7.503 (7.350-7.450); BG PO2 106.5 mmHg (75.0-100.0); BG SAMPLE SITE RIGHT RADIAL; BG TOTAL HEMOGLOBIN 8.5 g/dL (12.0-18.0); BG VENT MODE VENT - AC
[2021-09-22] MEDS: PANTOPRAZOLE SODIUM 40 MG/VIAL IV SCH ×2 (09:03→17:23)
[2021-09-22] MEDS: ASPIRIN 81MG TABLET NG SCH (09:03)
[2021-09-22] MEDS: FOLIC ACID 1MG TABLET PO SCH (09:03)
[2021-09-22] MEDS: MULTIVITAMINS,THER W-MINERALS TABLET PO SCH (09:03)
[2021-09-22] MEDS ORDERED: SODIUM PHOS,M-BASIC-D-BASIC 20 MM in DEXT 5% WATER 243.3333 ML IV NR (11:00)
[2021-09-22] MEDS ORDERED: MAGNESIUM 2 G PREMIX 50 ML IV NR (11:00)
[2021-09-22] MEDS: ACETAMINOPHEN 325MG TABLET PO PRN (21:43)
[2021-09-23] VITALS (36 sets, daily range): BP systolic 109–145; BP diastolic 65–89
[2021-09-23] MEDS: BLOOD SUGAR DIAGNOSTIC STRIP TEST SCH ×4 (03:58→17:49)
[2021-09-23] MEDS: INSULIN LISPRO 100 UNITS/ML SUBCUT SCH ×4 (04:04→17:52)
[2021-09-23 04:40] LABS: BASOPHILS % 0.4 % (0.0-2.0); CHLORIDE 108 mEq/L (98-107); EOSINOPHILS % 1.7 % (0.0-5.0); HEMATOCRIT. 27.4 % (36.0-48.0); HEMOGLOBIN. 8.9 g/dL (12.0-16.0); LYMPHOCYTES % 16.4 % (20.0-50.0); MEAN CORPUSCULAR VOLUME 89.5 fL (81.0-99.0); MEAN PLATELET VOLUME 9.2 fl (7.4-10.4); MONOCYTES % 8.7 % (2.0-8.0); NEUTROPHILS % 72.8 % (40.0-76.0); PLATELET 282 x1000/uL (130-400); RED BLOOD CELL COUNT 3.06 mill/uL (4.2-5.4); RED CELL DISTRIBUTION WIDTH 17.6 % (11.6-14.6)
[2021-09-23 04:41] LABS: CHLORIDE 107 mEq/L (98-107)
[2021-09-23 04:50] LABS: PHOSPHORUS 2.5 mg/dL (2.5-4.9)
[2021-09-23] MEDS: METOCLOPRAMIDE HCL 10MG/2ML VIAL IV SCH ×3 (05:10→17:49)
[2021-09-23] MEDS ORDERED: POTASSIUM CHLORIDE 20MEQ/PACKET PO NR (07:45)
[2021-09-23] MEDS: FOLIC ACID 1MG TABLET PO SCH (08:35)
[2021-09-23] MEDS: MULTIVITAMINS,THER W-MINERALS TABLET PO SCH (08:35)
[2021-09-23] MEDS: ASPIRIN 81MG TABLET NG SCH (08:35)
[2021-09-23] MEDS: PANTOPRAZOLE SODIUM 40 MG/VIAL IV SCH ×2 (08:35→17:48)
[2021-09-23 09:27] LABS: BG BASE EXCESS 3.9 mmol/L (-2.0-2.0); BG CARBOXYHEMOGLOBIN 0.4 % (0.5-1.5); BG FRACTION INSPIRED OXYGEN 30; BG HCO3 ACT 26.7 mmol/L (22.0-26.0); BG METHEMOGLOBIN 0.2 % (0.0-1.5); BG OXYHEMOGLOBIN 98.4 % (94.0-97.0); BG PCO2 33.2 mmHg (35.0-45.0); BG PH 7.523 (7.350-7.450); BG PO2 131.8 mmHg (75.0-100.0); BG SAMPLE SITE RIGHT RADIAL; BG TOTAL HEMOGLOBIN 8.9 g/dL (12.0-18.0); BG VENT MODE VENT - AC
[2021-09-23 14:00] LABS: BG BASE EXCESS 3.7 mmol/L (-2.0-2.0); BG CARBOXYHEMOGLOBIN 0.3 % (0.5-1.5); BG DEOXYHEMOGLOBIN 1.4 % (0.0-5.0); BG FRACTION INSPIRED OXYGEN 30; BG HCO3 ACT 26.8 mmol/L (22.0-26.0); BG METHEMOGLOBIN 0.4 % (0.0-1.5); BG OXYGEN SATURATION 98.6 % (92.0-98.5); BG OXYHEMOGLOBIN 97.9 % (94.0-97.0); BG PCO2 34.7 mmHg (35.0-45.0); BG PH 7.506 (7.350-7.450); BG PO2 131.8 mmHg (75.0-100.0); BG SAMPLE SITE RIGHT RADIAL; BG TOTAL HEMOGLOBIN 9.1 g/dL (12.0-18.0); BG VENT MODE VENT - CPAP
[2021-09-23] MEDS: IPRATROPIUM/ALBUTEROL 0.5-3(2.5)MG/3ML NEB HHN PRN (14:45)
[2021-09-23] MEDS: VANCOMYCIN 1000MG/20ML ORAL SOLN PO SCH (21:45)
[2021-09-23] MEDS ORDERED: AMOXICILLIN 500 MG CAPSULE PO SCH (22:00)
[2021-09-24] VITALS (43 sets, daily range): BP systolic 119–169; BP diastolic 68–100
[2021-09-24] MEDS: VANCOMYCIN 1000MG/20ML ORAL SOLN PO SCH ×5 (00:38→23:42)
[2021-09-24] MEDS: BLOOD SUGAR DIAGNOSTIC STRIP TEST SCH ×5 (00:39→23:51)
[2021-09-24] MEDS: INSULIN LISPRO 100 UNITS/ML SUBCUT SCH ×5 (00:39→23:56)
[2021-09-24] MEDS: METOCLOPRAMIDE HCL 10MG/2ML VIAL IV SCH ×5 (00:39→23:43)
[2021-09-24 04:57] LABS: BASOPHILS % 0.6 % (0.0-2.0); EOSINOPHILS % 1.6 % (0.0-5.0); HEMATOCRIT. 25.8 % (36.0-48.0); HEMOGLOBIN. 8.7 g/dL (12.0-16.0); LYMPHOCYTES % 15.7 % (20.0-50.0); MEAN CORPUSCULAR HEMOGLOBIN 29.6 pg (28.0-32.0); MEAN CORPUSCULAR VOLUME 87.3 fL (81.0-99.0); MEAN PLATELET VOLUME 8.4 fl (7.4-10.4); NEUTROPHILS % 73.1 % (40.0-76.0); PLATELET 355 x1000/uL (130-400); RED BLOOD CELL COUNT 2.95 mill/uL (4.2-5.4); RED CELL DISTRIBUTION WIDTH 17.7 % (11.6-14.6)
[2021-09-24 05:08] LABS: CHLORIDE 112 mEq/L (98-107)
[2021-09-24 05:13] LABS: PHOSPHORUS 3.1 mg/dL (2.5-4.9)
[2021-09-24] MEDS: AMOXICILLIN 500 MG CAPSULE PO SCH ×3 (05:50→23:42)
[2021-09-24] MEDS: FOLIC ACID 1MG TABLET PO SCH (08:24)
[2021-09-24] MEDS: ASPIRIN 81MG TABLET NG SCH (08:24)
[2021-09-24] MEDS: PANTOPRAZOLE SODIUM 40 MG/VIAL IV SCH ×2 (08:24→17:29)
[2021-09-24] MEDS: MULTIVITAMINS,THER W-MINERALS TABLET PO SCH (08:24)
[2021-09-24 10:07] LABS: BG BASE EXCESS 5.7 mmol/L (-2.0-2.0); BG CARBOXYHEMOGLOBIN 0.3 % (0.5-1.5); BG DEOXYHEMOGLOBIN 1.1 % (0.0-5.0); BG FRACTION INSPIRED OXYGEN 30; BG HCO3 ACT 29.5 mmol/L (22.0-26.0); BG METHEMOGLOBIN 0.4 % (0.0-1.5); BG OXYGEN SATURATION 98.9 % (92.0-98.5); BG OXYHEMOGLOBIN 98.2 % (94.0-97.0); BG PCO2 39.5 mmHg (35.0-45.0); BG PH 7.491 (7.350-7.450); BG PO2 145.3 mmHg (75.0-100.0); BG SAMPLE SITE RIGHT RADIAL; BG TOTAL HEMOGLOBIN 8.6 g/dL (12.0-18.0); BG VENT MODE T PIECE
[2021-09-24] MEDS: IPRATROPIUM/ALBUTEROL 0.5-3(2.5)MG/3ML NEB HHN PRN (13:33)
[2021-09-24] MEDS ORDERED: MAGNESIUM 2 G PREMIX 50 ML IV ONE (19:45)
[2021-09-24] MEDS ORDERED: MAGNESIUM 2 G PREMIX 50 ML IV NR (20:30)
[2021-09-25] VITALS (25 sets, daily range): BP systolic 112–156; BP diastolic 67–97
[2021-09-25 04:59] LABS: BASOPHILS % 0.5 % (0.0-2.0); HEMATOCRIT. 25.2 % (36.0-48.0); HEMOGLOBIN. 8.4 g/dL (12.0-16.0); LYMPHOCYTES % 14.6 % (20.0-50.0); MEAN CORPUSCULAR HEMOGLOBIN 29.8 pg (28.0-32.0); MEAN CORPUSCULAR VOLUME 89.4 fL (81.0-99.0); MEAN PLATELET VOLUME 8.1 fl (7.4-10.4); NEUTROPHILS % 74.9 % (40.0-76.0); PLATELET 432 x1000/uL (130-400); RED BLOOD CELL COUNT 2.82 mill/uL (4.2-5.4); RED CELL DISTRIBUTION WIDTH 18.2 % (11.6-14.6)
[2021-09-25 05:22] LABS: CHLORIDE 110 mEq/L (98-107)
[2021-09-25] MEDS: VANCOMYCIN 1000MG/20ML ORAL SOLN PO SCH ×3 (05:35→17:20)
[2021-09-25] MEDS: AMOXICILLIN 500 MG CAPSULE PO SCH ×3 (05:36→22:03)
[2021-09-25] MEDS: INSULIN LISPRO 100 UNITS/ML SUBCUT SCH ×3 (05:36→17:21)
[2021-09-25] MEDS: BLOOD SUGAR DIAGNOSTIC STRIP TEST SCH ×3 (05:36→17:21)
[2021-09-25] MEDS: METOCLOPRAMIDE HCL 10MG/2ML VIAL IV SCH ×3 (06:33→17:20)
[2021-09-25] MEDS: FOLIC ACID 1MG TABLET PO SCH (08:01)
[2021-09-25] MEDS: ASPIRIN 81MG TABLET NG SCH (08:01)
[2021-09-25] MEDS: PANTOPRAZOLE SODIUM 40 MG/VIAL IV SCH ×2 (08:01→17:20)
[2021-09-25] MEDS: MULTIVITAMINS,THER W-MINERALS TABLET PO SCH (08:01)
[2021-09-25] MEDS: ACETAMINOPHEN 325MG TABLET PO PRN (22:01)
[2021-09-26] VITALS (15 sets, daily range): BP systolic 119–153; BP diastolic 64–91
[2021-09-26] MEDS: VANCOMYCIN 1000MG/20ML ORAL SOLN PO SCH ×4 (00:10→18:24)
[2021-09-26] MEDS: METOCLOPRAMIDE HCL 10MG/2ML VIAL IV SCH ×4 (00:10→18:24)
[2021-09-26] MEDS: BLOOD SUGAR DIAGNOSTIC STRIP TEST SCH ×4 (00:21→18:49)
[2021-09-26] MEDS: INSULIN LISPRO 100 UNITS/ML SUBCUT SCH ×4 (00:41→18:28)
[2021-09-26 05:48] LABS: EOSINOPHILS % 2.4 % (0.0-5.0); HEMATOCRIT. 24.2 % (36.0-48.0); HEMOGLOBIN. 8.1 g/dL (12.0-16.0); LYMPHOCYTES % 18.6 % (20.0-50.0); MEAN CORPUSCULAR HEMOGLOBIN 30.1 pg (28.0-32.0); MEAN CORPUSCULAR VOLUME 89.9 fL (81.0-99.0); MEAN PLATELET VOLUME 8.4 fl (7.4-10.4); MONOCYTES % 8.9 % (2.0-8.0); NEUTROPHILS % 69.1 % (40.0-76.0); PLATELET 464 x1000/uL (130-400); RED BLOOD CELL COUNT 2.69 mill/uL (4.2-5.4); RED CELL DISTRIBUTION WIDTH 18.3 % (11.6-14.6)
[2021-09-26 05:52] LABS: CHLORIDE 110 mEq/L (98-107)
[2021-09-26] MEDS: AMOXICILLIN 500 MG CAPSULE PO SCH ×4 (06:00→22:03)
[2021-09-26] MEDS: FOLIC ACID 1MG TABLET PO SCH (08:03)
[2021-09-26] MEDS: ASPIRIN 81MG TABLET NG SCH (08:03)
[2021-09-26] MEDS: PANTOPRAZOLE SODIUM 40 MG/VIAL IV SCH ×2 (08:03→17:00)
[2021-09-26] MEDS: MULTIVITAMINS,THER W-MINERALS TABLET PO SCH (08:03)
[2021-09-26] MEDS: CARVEDILOL 3.125 MG TABLET PO SCH ×2 (09:24→22:03)
[2021-09-27] VITALS: BP 129/69
[2021-09-27] MEDS: VANCOMYCIN 1000MG/20ML ORAL SOLN PO SCH ×4 (02:06→17:40)
[2021-09-27] MEDS: INSULIN LISPRO 100 UNITS/ML SUBCUT SCH ×4 (02:08→17:40)
[2021-09-27] MEDS: METOCLOPRAMIDE HCL 10MG/2ML VIAL IV SCH ×4 (02:12→17:40)
[2021-09-27 04:00] VITALS: BP 135/76
[2021-09-27] MEDS: BLOOD SUGAR DIAGNOSTIC STRIP TEST SCH ×4 (06:35→17:00)
[2021-09-27] MEDS: AMOXICILLIN 500 MG CAPSULE PO SCH ×3 (06:36→22:09)
[2021-09-27 07:47] LABS: BASOPHILS % 0.9 % (0.0-2.0); EOSINOPHILS % 3.6 % (0.0-5.0); HEMATOCRIT. 25.2 % (36.0-48.0); HEMOGLOBIN. 8.4 g/dL (12.0-16.0); LYMPHOCYTES % 22.1 % (20.0-50.0); MEAN CORPUSCULAR HEMOGLOBIN 30.1 pg (28.0-32.0); MEAN CORPUSCULAR VOLUME 89.9 fL (81.0-99.0); MONOCYTES % 7.9 % (2.0-8.0); NEUTROPHILS % 65.5 % (40.0-76.0); PLATELET 486 x1000/uL (130-400); RED BLOOD CELL COUNT 2.81 mill/uL (4.2-5.4); RED CELL DISTRIBUTION WIDTH 18.3 % (11.6-14.6)
[2021-09-27 08:00] VITALS: BP 118/68
[2021-09-27 08:20] LABS: CHLORIDE 111 mEq/L (98-107)
[2021-09-27] MEDS: ASPIRIN 81MG TABLET NG SCH (08:38)
[2021-09-27] MEDS: FOLIC ACID 1MG TABLET PO SCH (08:38)
[2021-09-27] MEDS: PANTOPRAZOLE SODIUM 40 MG/VIAL IV SCH ×2 (08:38→17:40)
[2021-09-27] MEDS: CARVEDILOL 3.125 MG TABLET PO SCH ×2 (08:38→22:09)
[2021-09-27] MEDS: MULTIVITAMINS,THER W-MINERALS TABLET PO SCH (08:38)
[2021-09-27] MEDS: DEXT 5%/0.45% NACL 1000ML 1,000 ML IV SCH (11:54)
[2021-09-27 12:00] VITALS: BP 139/85
[2021-09-27 15:36] VITALS: BP 131/82
[2021-09-27 20:00] VITALS: BP 168/64
[2021-09-28] VITALS: BP 129/80
[2021-09-28] MEDS: BLOOD SUGAR DIAGNOSTIC STRIP TEST SCH ×4 (00:37→17:09)
[2021-09-28] MEDS: METOCLOPRAMIDE HCL 10MG/2ML VIAL IV SCH ×4 (00:51→17:14)
[2021-09-28] MEDS: VANCOMYCIN 1000MG/20ML ORAL SOLN PO SCH ×4 (00:51→17:18)
[2021-09-28] MEDS: DEXT 5%/0.45% NACL 1000ML 1,000 ML IV SCH ×2 (00:52→14:51)
[2021-09-28] MEDS: INSULIN LISPRO 100 UNITS/ML SUBCUT SCH ×4 (00:55→17:15)
[2021-09-28 04:00] VITALS: BP 118/68
[2021-09-28] MEDS: AMOXICILLIN 500 MG CAPSULE PO SCH ×3 (06:53→22:18)
[2021-09-28 08:00] VITALS: BP 147/78
[2021-09-28 08:26] LABS: BASOPHILS % 1.4 % (0.0-2.0); EOSINOPHILS % 4.6 % (0.0-5.0); MEAN CORPUSCULAR HEMOGLOBIN 29.9 pg (28.0-32.0); MEAN CORPUSCULAR VOLUME 89.9 fL (81.0-99.0); MEAN PLATELET VOLUME 8.4 fl (7.4-10.4); MONOCYTES % 7.3 % (2.0-8.0); NEUTROPHILS % 58.7 % (40.0-76.0); PLATELET 476 x1000/uL (130-400); RED BLOOD CELL COUNT 2.67 mill/uL (4.2-5.4); RED CELL DISTRIBUTION WIDTH 18.7 % (11.6-14.6)
[2021-09-28 09:04] LABS: CHLORIDE 109 mEq/L (98-107)
[2021-09-28] MEDS: ASPIRIN 81MG TABLET NG SCH (10:02)
[2021-09-28] MEDS: PANTOPRAZOLE SODIUM 40 MG/VIAL IV SCH ×2 (10:02→17:14)
[2021-09-28] MEDS: MULTIVITAMINS,THER W-MINERALS TABLET PO SCH (10:03)
[2021-09-28] MEDS: FOLIC ACID 1MG TABLET PO SCH (10:03)
[2021-09-28] MEDS: CARVEDILOL 3.125 MG TABLET PO SCH ×2 (10:04→22:18)
[2021-09-28 12:00] VITALS: BP 125/75
[2021-09-28 16:00] VITALS: BP 103/53
[2021-09-28 20:00] VITALS: BP 124/67
[2021-09-29] VITALS: BP 110/62
[2021-09-29] MEDS: BLOOD SUGAR DIAGNOSTIC STRIP TEST SCH ×4 (00:15→17:07)
[2021-09-29] MEDS: METOCLOPRAMIDE HCL 10MG/2ML VIAL IV SCH ×4 (00:33→17:05)
[2021-09-29] MEDS: VANCOMYCIN 1000MG/20ML ORAL SOLN PO SCH ×4 (00:33→17:05)
[2021-09-29] MEDS: INSULIN LISPRO 100 UNITS/ML SUBCUT SCH ×4 (00:35→17:06)
[2021-09-29 04:00] VITALS: BP 123/67
[2021-09-29] MEDS: DEXT 5%/0.45% NACL 1000ML 1,000 ML IV SCH ×2 (06:30→17:05)
[2021-09-29] MEDS: AMOXICILLIN 500 MG CAPSULE PO SCH (06:30)
[2021-09-29 07:55] LABS: BASOPHILS % 1.5 % (0.0-2.0); EOSINOPHILS % 6.1 % (0.0-5.0); HEMATOCRIT. 24.3 % (36.0-48.0); HEMOGLOBIN. 8.1 g/dL (12.0-16.0); LYMPHOCYTES % 30.1 % (20.0-50.0); MEAN CORPUSCULAR HEMOGLOBIN 30.1 pg (28.0-32.0); MEAN PLATELET VOLUME 8.2 fl (7.4-10.4); MONOCYTES % 8.2 % (2.0-8.0); NEUTROPHILS % 54.1 % (40.0-76.0); PLATELET 476 x1000/uL (130-400); RED BLOOD CELL COUNT 2.67 mill/uL (4.2-5.4); RED CELL DISTRIBUTION WIDTH 18.6 % (11.6-14.6)
[2021-09-29 08:00] VITALS: BP 126/70
[2021-09-29] MEDS: CARVEDILOL 3.125 MG TABLET PO SCH ×2 (08:39→21:45)
[2021-09-29] MEDS: PANTOPRAZOLE SODIUM 40 MG/VIAL IV SCH ×2 (08:39→17:05)
[2021-09-29] MEDS: MULTIVITAMINS,THER W-MINERALS TABLET PO SCH (08:39)
[2021-09-29] MEDS: ASPIRIN 81MG TABLET NG SCH (08:39)
[2021-09-29] MEDS: FOLIC ACID 1MG TABLET PO SCH (08:39)
[2021-09-29 09:03] LABS: CHLORIDE 107 mEq/L (98-107)
[2021-09-29 11:36] VITALS: BP 110/62
[2021-09-29 16:05] VITALS: BP 107/65
[2021-09-29] MEDS ORDERED: POTASSIUM CHLORIDE INJ 40 MEQ in DEXT 5% WATER 250 ML IV ONE (17:30)
[2021-09-29] MEDS: FUROSEMIDE 40MG TABLET PO SCH (17:50)
[2021-09-29 20:00] VITALS: BP 130/73
[2021-09-29] MEDS: KCL 20MEQ/100ML X 2 FOR TOTAL KCL 40MEQ/200ML IV NR (21:44)
[2021-09-30] VITALS: BP 138/71
[2021-09-30] MEDS: BLOOD SUGAR DIAGNOSTIC STRIP TEST SCH ×4 (00:37→17:06)
[2021-09-30] MEDS: METOCLOPRAMIDE HCL 10MG/2ML VIAL IV SCH ×4 (00:38→17:12)
[2021-09-30] MEDS: KCL 20MEQ/100ML X 2 FOR TOTAL KCL 40MEQ/200ML IV NR (00:38)
[2021-09-30] MEDS ORDERED: MAGNESIUM 2 G PREMIX 50 ML IV NR (01:00)
[2021-09-30 04:00] VITALS: BP 141/82
[2021-09-30] MEDS: DEXT 5%/0.45% NACL 1000ML 1,000 ML IV SCH ×2 (06:50→21:43)
[2021-09-30] MEDS: INSULIN LISPRO 100 UNITS/ML SUBCUT SCH ×4 (06:51→17:12)
[2021-09-30 07:02] LABS: BASOPHILS % 1.8 % (0.0-2.0); EOSINOPHILS % 5.4 % (0.0-5.0); HEMATOCRIT. 26.4 % (36.0-48.0); LYMPHOCYTES % 34.1 % (20.0-50.0); MEAN CORPUSCULAR HEMOGLOBIN 30.9 pg (28.0-32.0); MEAN CORPUSCULAR VOLUME 91.1 fL (81.0-99.0); MEAN PLATELET VOLUME 8.3 fl (7.4-10.4); MONOCYTES % 8.5 % (2.0-8.0); NEUTROPHILS % 50.2 % (40.0-76.0); PLATELET 518 x1000/uL (130-400); RED CELL DISTRIBUTION WIDTH 19.1 % (11.6-14.6)
[2021-09-30 07:35] LABS: CHLORIDE 109 mEq/L (98-107)
[2021-09-30 08:00] VITALS: BP 136/71
[2021-09-30] MEDS: ASPIRIN 81MG TABLET NG SCH (09:23)
[2021-09-30] MEDS: PANTOPRAZOLE SODIUM 40 MG/VIAL IV SCH ×2 (09:23→17:13)
[2021-09-30] MEDS: FUROSEMIDE 40MG TABLET PO SCH (09:24)
[2021-09-30] MEDS: CARVEDILOL 3.125 MG TABLET PO SCH ×2 (09:24→21:43)
[2021-09-30] MEDS: MULTIVITAMINS,THER W-MINERALS TABLET PO SCH (09:24)
[2021-09-30] MEDS: FOLIC ACID 1MG TABLET PO SCH (09:24)
[2021-09-30 12:00] VITALS: BP_SYST 103; BP_SYST 13; BP_DIAS 52
[2021-09-30 16:00] VITALS: BP 110/48
[2021-09-30] MEDS: VANCOMYCIN 1000MG/20ML ORAL SOLN PO SCH (17:17)
[2021-09-30] MEDS ORDERED: MAGNESIUM 1 G PREMIX 100 ML IV NR (17:44)
[2021-09-30 20:00] VITALS: BP 135/80
[2021-10-01] VITALS (9 sets, daily range): BP systolic 117–140; BP diastolic 54–76
[2021-10-01] MEDS: BLOOD SUGAR DIAGNOSTIC STRIP TEST SCH ×4 (00:08→18:00)
[2021-10-01] MEDS: VANCOMYCIN 1000MG/20ML ORAL SOLN PO SCH ×4 (00:21→17:52)
[2021-10-01] MEDS: METOCLOPRAMIDE HCL 10MG/2ML VIAL IV SCH ×4 (00:21→17:52)
[2021-10-01] MEDS: INSULIN LISPRO 100 UNITS/ML SUBCUT SCH ×4 (00:23→18:02)
[2021-10-01 06:34] LABS: BASOPHILS % 1.1 % (0.0-2.0); EOSINOPHILS % 5.6 % (0.0-5.0); LYMPHOCYTES % 28.8 % (20.0-50.0); MEAN CORPUSCULAR HEMOGLOBIN 29.9 pg (28.0-32.0); MEAN CORPUSCULAR VOLUME 90.7 fL (81.0-99.0); MEAN PLATELET VOLUME 8.6 fl (7.4-10.4); MONOCYTES % 8.9 % (2.0-8.0); NEUTROPHILS % 55.6 % (40.0-76.0); PLATELET 466 x1000/uL (130-400); RED CELL DISTRIBUTION WIDTH 19.3 % (11.6-14.6)
[2021-10-01 06:55] LABS: CHLORIDE 109 mEq/L (98-107)
[2021-10-01 07:12] LABS: HEMATOCRIT. 22.7 % (36.0-48.0); HEMOGLOBIN. 7.5 g/dL (12.0-16.0)
[2021-10-01] MEDS: PANTOPRAZOLE SODIUM 40 MG/VIAL IV SCH ×2 (09:10→17:52)
[2021-10-01] MEDS: MULTIVITAMINS,THER W-MINERALS TABLET PO SCH (09:11)
[2021-10-01] MEDS: FOLIC ACID 1MG TABLET PO SCH (09:11)
[2021-10-01] MEDS: FUROSEMIDE 40MG TABLET PO SCH (09:11)
[2021-10-01] MEDS: ASPIRIN 81MG TABLET NG SCH (09:11)
[2021-10-01] MEDS: CARVEDILOL 3.125 MG TABLET PO SCH (09:11)
[2021-10-01] MEDS: DEXT 5%/0.45% NACL 1000ML 1,000 ML IV SCH (09:12)
[2021-10-01] MEDS ORDERED: MAGNESIUM 2 G PREMIX 50 ML IV NR (11:00)
[2021-10-01] MEDS: CARVEDILOL 6.25 MG TABLET PO SCH (21:38)
[2021-10-02] VITALS (8 sets, daily range): BP systolic 110–136; BP diastolic 54–73
[2021-10-02] MEDS: METOCLOPRAMIDE HCL 10MG/2ML VIAL IV SCH ×4 (00:28→18:00)
[2021-10-02] MEDS: VANCOMYCIN 1000MG/20ML ORAL SOLN PO SCH ×4 (00:28→18:00)
[2021-10-02] MEDS: INSULIN LISPRO 100 UNITS/ML SUBCUT SCH ×4 (00:30→18:02)
[2021-10-02] MEDS: BLOOD SUGAR DIAGNOSTIC STRIP TEST SCH ×4 (00:30→18:21)
[2021-10-02 07:27] LABS: CHLORIDE 109 mEq/L (98-107)
[2021-10-02 07:28] LABS: BASOPHILS % 1.5 % (0.0-2.0); EOSINOPHILS % 5.9 % (0.0-5.0); HEMATOCRIT. 27.9 % (36.0-48.0); HEMOGLOBIN. 9.4 g/dL (12.0-16.0); LYMPHOCYTES % 31.1 % (20.0-50.0); MEAN CORPUSCULAR HEMOGLOBIN 30.7 pg (28.0-32.0); MEAN CORPUSCULAR VOLUME 91.1 fL (81.0-99.0); MEAN PLATELET VOLUME 8.5 fl (7.4-10.4); MONOCYTES % 10.3 % (2.0-8.0); NEUTROPHILS % 51.2 % (40.0-76.0); PLATELET 406 x1000/uL (130-400); RED BLOOD CELL COUNT 3.06 mill/uL (4.2-5.4); RED CELL DISTRIBUTION WIDTH 17.4 % (11.6-14.6)
[2021-10-02] MEDS: FUROSEMIDE 40MG TABLET PO SCH (09:13)
[2021-10-02] MEDS: CARVEDILOL 6.25 MG TABLET PO SCH ×2 (09:14→21:03)
[2021-10-02] MEDS: MULTIVITAMINS,THER W-MINERALS TABLET PO SCH (09:14)
[2021-10-02] MEDS: FOLIC ACID 1MG TABLET PO SCH (09:14)
[2021-10-02] MEDS: PANTOPRAZOLE SODIUM 40 MG/VIAL IV SCH ×2 (09:14→18:01)
[2021-10-02] MEDS: MAGNESIUM OXIDE 400MG TABLET PO SCH (09:19)
[2021-10-03] VITALS: BP 129/82
[2021-10-03] MEDS: METOCLOPRAMIDE HCL 10MG/2ML VIAL IV SCH ×3 (00:55→11:47)
[2021-10-03] MEDS: VANCOMYCIN 1000MG/20ML ORAL SOLN PO SCH ×3 (00:55→11:47)
[2021-10-03] MEDS: INSULIN LISPRO 100 UNITS/ML SUBCUT SCH ×3 (00:57→11:50)
[2021-10-03] MEDS: BLOOD SUGAR DIAGNOSTIC STRIP TEST SCH ×3 (00:58→11:47)
[2021-10-03 04:00] VITALS: BP 133/89
[2021-10-03 07:14] LABS: BASOPHILS % 1.8 % (0.0-2.0); EOSINOPHILS % 6.4 % (0.0-5.0); HEMATOCRIT. 26.9 % (36.0-48.0); LYMPHOCYTES % 34.1 % (20.0-50.0); MEAN CORPUSCULAR HEMOGLOBIN 30.5 pg (28.0-32.0); MEAN CORPUSCULAR VOLUME 91.6 fL (81.0-99.0); MEAN PLATELET VOLUME 8.4 fl (7.4-10.4); NEUTROPHILS % 46.7 % (40.0-76.0); PLATELET 374 x1000/uL (130-400); RED BLOOD CELL COUNT 2.94 mill/uL (4.2-5.4); RED CELL DISTRIBUTION WIDTH 17.5 % (11.6-14.6)
[2021-10-03 07:34] LABS: CHLORIDE 109 mEq/L (98-107)
[2021-10-03 08:07] VITALS: BP 139/69
[2021-10-03] MEDS: MULTIVITAMINS,THER W-MINERALS TABLET PO SCH (08:45)
[2021-10-03] MEDS: CARVEDILOL 6.25 MG TABLET PO SCH (08:45)
[2021-10-03] MEDS: MAGNESIUM OXIDE 400MG TABLET PO SCH (08:46)
[2021-10-03] MEDS: FUROSEMIDE 40MG TABLET PO SCH (08:46)
[2021-10-03] MEDS: PANTOPRAZOLE SODIUM 40 MG/VIAL IV SCH ×2 (08:46→16:43)
[2021-10-03] MEDS: FOLIC ACID 1MG TABLET PO SCH (08:46)
[2021-10-03 12:05] VITALS: BP 133/68
[2021-10-03 12:36] VITALS: BP 133/68
[2021-10-03 16:01] VITALS: BP 131/67
== END 2021-10-03 17:00 | DRG 720 ==
LOC: ER 10:33 → MICUSO 11:38 → ENRESERV 13:21 → 8WST 09-26 13:03
PROVIDERS: ADMIT Internal Medicine; ATTEND Internal Medicine
PROC: 5A1955Z Respiratory Ventilation, Greater than 96 Consecutive Hours (ICD-10-PCS; principal; 2021-09-14)
PROC: 5A12012 Performance of Cardiac Output, Single, Manual (ICD-10-PCS; 2021-09-14)
PROC: 06HY33Z Insertion of Infusion Device into Lower Vein, Percutaneous Approach (ICD-10-PCS; 2021-09-14)
PROC: B54CZZA Ultrasonography of Left Lower Extremity Veins, Guidance (ICD-10-PCS; 2021-09-14)
PROC: 30233N1 Transfusion of Nonautologous Red Blood Cells into Peripheral Vein, Percutaneous Approach (ICD-10-PCS; 2021-09-14)
PROC: 0BH17EZ Insertion of Endotracheal Airway into Trachea, Via Natural or Artificial Opening (ICD-10-PCS; 2021-09-14)
PROC: 02HV33Z Insertion of Infusion Device into Superior Vena Cava, Percutaneous Approach (ICD-10-PCS; 2021-09-16)
PROC: 4A10X4Z Monitoring of Central Nervous Electrical Activity, External Approach (ICD-10-PCS; 2021-09-19)
DX: A41.01 Sepsis due to Methicillin susceptible Staphylococcus aureus (principal); I46.9 Cardiac arrest, cause unspecified; J96.01 Acute respiratory failure with hypoxia; N17.0 Acute kidney failure with tubular necrosis; J69.0 Pneumonitis due to inhalation of food and vomit; D69.6 Thrombocytopenia, unspecified; E43 Unspecified severe protein-calorie malnutrition; E11.649 Type 2 diabetes mellitus with hypoglycemia without coma; S32.049A Unspecified fracture of fourth lumbar vertebra, initial encounter for closed fracture; R65.21 Severe sepsis with septic shock; K92.2 Gastrointestinal hemorrhage, unspecified; E87.0 Hyperosmolality and hypernatremia; E11.22 Type 2 diabetes mellitus with diabetic chronic kidney disease; D64.9 Anemia, unspecified; N18.9 Chronic kidney disease, unspecified; N39.0 Urinary tract infection, site not specified; F10.10 Alcohol abuse, uncomplicated; Y90.9 Presence of alcohol in blood, level not specified; J44.0 Chronic obstructive pulmonary disease with (acute) lower respiratory infection; R74.01 Elevation of levels of liver transaminase levels; E87.6 Hypokalemia; X58.XXXA Exposure to other specified factors, initial encounter; E78.5 Hyperlipidemia, unspecified; S20.102A Unspecified superficial injuries of breast, left breast, initial encounter; S20.101A Unspecified superficial injuries of breast, right breast, initial encounter; E72.20 Disorder of urea cycle metabolism, unspecified; E83.39 Other disorders of phosphorus metabolism; E83.42 Hypomagnesemia; E88.09 Other disorders of plasma-protein metabolism, not elsewhere classified; I42.9 Cardiomyopathy, unspecified; I48.91 Unspecified atrial fibrillation; K76.0 Fatty (change of) liver, not elsewhere classified; K82.8 Other specified diseases of gallbladder; Z66 Do not resuscitate; R13.10 Dysphagia, unspecified; I12.9 Hypertensive chronic kidney disease with stage 1 through stage 4 chronic kidney disease, or unspecified chronic kidney disease; Z79.84 Long term (current) use of oral hypoglycemic drugs; Z79.899 Other long term (current) drug therapy; Z68.27 Body mass index [BMI] 27.0-27.9, adult; Y93.89 Activity, other specified; Y92.89 Other specified places as the place of occurrence of the external cause; Y99.8 Other external cause status; I25.2 Old myocardial infarction; Z79.82 Long term (current) use of aspirin
CPT/HCPCS: 36415; 36573; 36600; 70551; 71045; 74018; 74176; 76700; 80048; 80053; 80061; 80076; 80202; 80305; 80320; 81003; 82140; 82150; 82248; 82270; 82330; 82375; 82533; 82550; 82553; 82570; 82607; 82728; 82746; 82805; 82962; 83540; 83550; 83605; 83735; 83880; 84100; 84134; 84145; 84156; 84443; 84478; 84484; 84703; 85025; 85044; 86850; 86900; 86920; 87070; 87077; 87186; 92610; 93005; 93306; 93970; 94003; 94640; 95816; 97116; 97162; 97530; 99291; C1725; C9113; J0360; J1160; J1815; J2175; J2250; J2370; J2405; J2543; J2704; J2765; J3010; J3370; J3411; J3475; J3480; J3490; J7030; J7050; J7060; P9016; A4315; G0480

== ENCOUNTER 2024-05-27 12:42 | Inpatient (IN) | payer OTHER ==
[~2024-05-27] VITALS: Ht 162.6 cm; Wt 65.9 kg
[~2024-05-27 12:42] MED LIST changes: +AMLO10TA80 MT; +ATOR40TA70 MT; +DOCU-138 MT; -EPINEPHRINE 0.1MG/ML (1:10,000) 10ML SYR ONE; +FERR325T6 MT; +GLUXL5 MT; +LEVO25TA7 MT; +LOSA50TA41 MT; +METO-385 MT; -SODIUM BICARBONATE 8.4% 1 MEQ/ML 50ML SYR IV ONE
[2024-05-27 13:54] LABS: BASOPHILS % 0.3 % (0.0-2.0); EOSINOPHILS % 0.1 % (0.0-5.0); HEMATOCRIT. 33.2 % (36.0-48.0); HEMOGLOBIN. 10.8 g/dL (12.0-16.0); LYMPHOCYTES % 21.4 % (20.0-50.0); MEAN CORPUSCULAR HEMOGLOBIN 28.5 pg (28.0-32.0); MEAN CORPUSCULAR HGB CONC 32.5 g/dL (31.0-37.0); MEAN CORPUSCULAR VOLUME 87.7 fL (81.0-99.0); MEAN PLATELET VOLUME 8.9 fl (7.4-10.4); MONOCYTES % 10.1 % (2.0-8.0); NEUTROPHILS % 68.1 % (40.0-76.0); PLATELET 277 x1000/uL (130-400); RED BLOOD CELL COUNT 3.79 mill/uL (4.2-5.4); WHITE BLOOD COUNT 7.8 x1000/uL (4.5-11.0)
[2024-05-27 14:00] LABS: CHLORIDE 99 mEq/L (98-107); POTASSIUM 3.5 mEq/L (3.5-5.1); SODIUM 140 mEq/L (136-145)
[2024-05-27 14:01] LABS: CALCIUM 10.1 mg/dL (8.7-10.4); CARBON DIOXIDE 29 mEq/L (21-32)
[2024-05-27 14:04] LABS: PROTHROMBIN TIME 10.7 sec (9.6-11.0)
[2024-05-27 14:06] LABS: CREATININE 1.7 mg/dL (0.6-1.0); GLUCOSE 182 mg/dL (70-105); UREA NITROGEN BLOOD 35 mg/dL (9-23)
[2024-05-27 14:07] LABS: TROPONIN I HIGH SENSITIVITY 4 ng/L (3.0-34)
[2024-05-27] MEDS: SODIUM CHLORIDE 0.9% 1,000 ML IV ONE (15:09)
[2024-05-27] MEDS: ONDANSETRON HCL 4MG/2ML INJ IV STA (15:09)
[2024-05-27] MEDS: PANTOPRAZOLE SODIUM 40 MG/VIAL IV ONE (15:10)
[2024-05-27 18:01] VITALS: BP 154/85; PULSE 96; RESP 14; TEMP 35.6952
[2024-05-27] MEDS ORDERED: ACETAMINOPHEN 325MG TABLET PO PRN (18:45)
[2024-05-27 19:58] LABS: BASOPHILS % 0.4 % (0.0-2.0); EOSINOPHILS % 0.1 % (0.0-5.0); HEMATOCRIT. 31.3 % (36.0-48.0); HEMOGLOBIN. 10.3 g/dL (12.0-16.0); LYMPHOCYTES % 20.3 % (20.0-50.0); MEAN CORPUSCULAR HEMOGLOBIN 28.9 pg (28.0-32.0); MEAN CORPUSCULAR HGB CONC 32.8 g/dL (31.0-37.0); MEAN PLATELET VOLUME 8.4 fl (7.4-10.4); MONOCYTES % 9.7 % (2.0-8.0); NEUTROPHILS % 69.5 % (40.0-76.0); PLATELET 263 x1000/uL (130-400); RED BLOOD CELL COUNT 3.55 mill/uL (4.2-5.4); RED CELL DISTRIBUTION WIDTH 13.9 % (11.6-14.6); WHITE BLOOD COUNT 8.2 x1000/uL (4.5-11.0)
[2024-05-27 20:00] VITALS: BP 153/77; PULSE 100; RESP 17; TEMP 36.28068; O2SAT 98
[2024-05-27] MEDS: PANTOPRAZOLE SODIUM 40 MG/VIAL IV SCH (21:22)
[2024-05-28] VITALS: BP 146/71; PULSE 94; RESP 18; TEMP 37.05852; O2SAT 97
[2024-05-28 04:00] VITALS: BP 158/67; PULSE 89; RESP 18; TEMP 36.3918; O2SAT 98
[2024-05-28 08:00] VITALS: BP 150/73; PULSE 92; RESP 18; TEMP 36.83628; O2SAT 96
[2024-05-28] MEDS: AMLODIPINE 10MG TABLET PO SCH (09:08)
[2024-05-28 09:45] LABS: HEMATOCRIT 32.2 % (36.0-48.0); HEMOGLOBIN 10.5 g/dL (12.0-16.0)
[2024-05-28 12:00] VITALS: BP 137/77; PULSE 93; RESP 18; TEMP 36.72516; O2SAT 97
[2024-05-28] MEDS ORDERED: DEXTROSE 50% WATER 50ML SYRINGE IV PRN (13:00)
[2024-05-28] MEDS: METOPROLOL SUCCINATE 50MG ER TABLET PO SCH (13:15)
[2024-05-28 14:06] LABS: CLARITY URINE CLEAR (CLEAR); COLOR URINE YELLOW (YELLOW); GLUCOSE URINE NEGATIVE (NEGATIVE); KETONES URINE NEGATIVE (NEGATIVE); LEUKOCYTE ESTERASE URINE TRACE (NEGATIVE); NITRITE URINE NEGATIVE (NEGATIVE); OCCULT BLOOD URINE NEGATIVE (NEGATIVE); PROTEIN URINE 2+ (NEGATIVE); SPECIFIC GRAVITY URINE 1.017 (1.005-1.030); UROBILINOGEN URINE 0.2 E.U./dL (0.2-1.0)
[2024-05-28 14:22] LABS: BACTERIA URINE FEW; RBC URINE 0-2 /hpf (0-2); SQUAMOUS EPITHELIAL CELL URINE FEW /lpf (RARE/1+); YEAST URINE NONE SEEN
[2024-05-28] MEDS: ONDANSETRON HCL 4MG/2ML INJ IV PRN (14:33)
[2024-05-28 16:00] VITALS: BP 147/80; PULSE 90; RESP 18; TEMP 36.89184; O2SAT 99
[2024-05-28] MEDS: BLOOD SUGAR DIAGNOSTIC STRIP TEST SCH (16:45)
[2024-05-28] MEDS: INSULIN LISPRO 100 UNITS/ML SUBCUT SCH (17:15)
[2024-05-28 19:01] LABS: POTASSIUM 4.1 mEq/L (3.5-5.1)
[2024-05-28 19:03] LABS: CALCIUM 9.8 mg/dL (8.7-10.4)
[2024-05-28 19:07] LABS: CREATININE 1.4 mg/dL (0.6-1.0)
[2024-05-28 20:00] VITALS: BP 156/82; PULSE 82; RESP 20; TEMP 36.3918; O2SAT 98
[2024-05-29] VITALS: BP 160/82; PULSE 83; RESP 18; TEMP 36.22512; O2SAT 97
[2024-05-29 04:00] VITALS: BP 154/78; PULSE 77; RESP 18; TEMP 36.28068; O2SAT 99
[2024-05-29 08:00] VITALS: BP 132/78; PULSE 87; RESP 18; TEMP 36.44736; O2SAT 97
[2024-05-29] MEDS: POLYETHYLENE GLYCOL 3350 (17GM) 1 DOSE PACK PO NR (10:29)
[2024-05-29] MEDS: DOCUSATE SODIUM 250MG CAPSULE PO NR (10:29)
[2024-05-29 12:00] VITALS: BP 154/85; PULSE 86; RESP 16; TEMP 36.78072; O2SAT 98
[2024-05-29 16:00] VITALS: BP 132/71; PULSE 80; RESP 16; TEMP 36.50292; O2SAT 96
[2024-05-29 20:00] VITALS: BP 145/66; PULSE 82; RESP 16; TEMP 36.44736; O2SAT 99
[2024-05-30] VITALS: BP 122/84; PULSE 92; RESP 18; TEMP 36.3918; O2SAT 96
[2024-05-30 04:00] VITALS: BP 136/89; PULSE 91; RESP 18; TEMP 36.44736; O2SAT 100
[2024-05-30 08:00] VITALS: BP 123/76; PULSE 97; RESP 18; TEMP 36.16956; O2SAT 97
[2024-05-30 09:34] VITALS: BP 123/76; PULSE 84; TEMP 97.1; O2SAT 97
[2024-05-30] MEDS: NA PHOS,M-B/NA PHOS,DI-BA ENEMA 118ML PR NR (10:00)
== END 2024-05-30 18:04 | disposition home or self-care (01) | DRG 377 ==
LOC: ER 12:42 → 5WST 15:26 → EDBEDREQTM 15:29 → EDBEDREQ 15:29
PROVIDERS: ADMIT Internal Medicine; ATTEND Internal Medicine
DX: K92.2 Gastrointestinal hemorrhage, unspecified (principal); N17.0 Acute kidney failure with tubular necrosis; J44.9 Chronic obstructive pulmonary disease, unspecified; E11.9 Type 2 diabetes mellitus without complications; I10 Essential (primary) hypertension; E78.00 Pure hypercholesterolemia, unspecified; E03.9 Hypothyroidism, unspecified; Z79.82 Long term (current) use of aspirin
CPT/HCPCS: 36415; 71045; 74018; 80048; 81003; 82962; 83036; 84484; 85014; 85018; 85025; 86850; 86900; 93005; 99285; A4606; A4663; J1815; J2405; J2470; J7030